=== PATIENT | male | born 1950 | race African-American/Black ===

== ENCOUNTER 2020-11-29 01:30 | Inpatient (IN) | payer MEDICARE, MEDICAID ==
[~2020-11-29] VITALS: Ht 182.9 cm; Wt 104.0 kg
--- NOTE | ~2020-11-29 | EMS ---
[address] [address] EMS Patient Care Report Name: NICHOLAS PIERCE Room: [address] ADM IN M.R.#: [id number] Admission: 11/29/20 Attend Phys: Rome Siegel MD Discharge: Date of : 54 Report #: [id number] THIS REPORT FOR: //name// Report Transmitted: 12/01/2020 13:12 EMS Care Summary [facility] Incident [id number] @ 11/29/2020 00:33 Incident Location [address] [place], [place] [id number] Patient Nicholas Pierce Male, 70 Years 1950 Patient Address [address] [place], [place] [id number] Patient History Schizoaffective Disorder,Anemia, unspecified,Endocrine Condition - Other,Paraplegia,Urinary tract infection, site not specified,Chronic Obstructive Pulmonary Disease (COPD),Other chronic pain,Anxiety disorder, unspecified,Bronchitis, not specified as acute or chronic,Atrial Fibrillation,Edema, unspecified,Acute respiratory failure,Novel Coronavirus (COVID-19),Pneumonia, unspecified organism,Hyperlipidemia,Hypothyroidism, unspecified, Patient Allergies No known allergies, Chief Complaint Shortness of Breath Disposition Transported No Lights/[place] Dispatch Reason Breathing Problem Transported To [address] [address] EMS Patient Care Report Name: NICHOLAS PIERCE Room: [address] IN [facility]#: [id number] Admission: 11/29/20 Attend Phys: Rome Siegel MD Discharge: Date of : 54 Report #: [id number] [facility] 320 WAS DISPATCHED TO [facility] FOR A 70 YEAR OLD COVID-19 POSITIVE MALE WITH SHORTNESS OF AIR AND A DECREASED OXYGEN SATURATION. UPON ARRIVAL, PATIENT CONTACT WAS DELAYED WHILE WAITING FOR STAFF TO LET US INTO THE BUILDING. AFTER GAINING ACCESS INTO THE BUILDING, [facility] PERSONNEL WERE LED TO ROOM 67 TO FIND A MALE SITTING IN BED IN A SEMI-PORTER'S POSITION WITH RAPID BUT UNLABORED RESPIRATIONS AND OPENED HIS EYES TO VERBAL STIMULI. STAFF EXPLAINED THAT HE WAS DIAGNOSED WITH COVID-19 2 DAYS AGO AND HAS HAD A TEMPERATURE OF 100.7 SINCE LAST NIGHT (FRIDAY) AND HIS OXYGEN SATURATION DROPPED TO 78% WHILE RECEIVING 3 LPM OXYGEN. STAFF WAS ASKED BY [facility] PERSONNEL IF THEY THOUGHT TO INCREASE HIS OXYGEN TO RAISE HIS OXYGEN SATURATION TO WHICH THEY STATED "YES, THE OXYGEN WAS INCREASED TO 4 LPM BUT HIS OXYGEN SATURATION WON'T MOVE HIGHER THAN 86%." WHEN ASKED IF THEY CONSIDERED INCREASING HIS OXYGEN TO 5 OR 6 LPM, STAFF WAS UNABLE TO PROVIDE AN ANSWER. VITAL SIGNS WERE OBTAINED, LUNG SOUND WERE ASSESSED AND NICHOLAS WAS TRANSFERRED LATERALLY ONTO THE COT WHERE HE WAS SECURED VIA 5 SAFETY STRAPS AND OXYGEN WAS ADMINISTERED VIA NRB WHICH QUICKLY IMPROVED HIS OXYGEN SATURATION. PAPER WORK WAS OBTAINED AND NICHOLAS WAS SECURED INTO THE AMBULANCE WHERE TREATMENTS AND INTERVENTIONS CONTINUED. NICHOLAS WAS MONITORED DURING TRANSPORT TO [facility] ER WITH NO SIGNIFICANT CHANGES IN PATIENT CONDITION AND IMPROVED OXYGEN SATURATION SINCE ADMINISTERING 10 LPM VIA NRB. UPON ARRIVAL, THE PATIENT WAS REMOVED FROM THE UNIT AND TAKEN INSIDE TO ER 13 WHERE HE WAS TRANSFERRED LATERALLY ONTO THE ER BED VIA DRAW SHEET. REPORT WAS GIVEN TO THE RECEIVING RN AND CARE WAS TRANSFERRED. [facility] BACK IN SERVICE. Initial Vitals @00:45SpO2: 85, @00:57SpO2: 89, @01:11SpO2: 94, @01:12SpO2: 94, @01:16SpO2: 94, @01:21SpO2: 95, @00:58 @00:59 @00:56 @01:10Temp: [id number], @00:44P: 106,R: 28,BP: 168/84, @01:20P: 104,R: 24,BP: 160/78, @00:99WfHZ8: 29, @00:78JoYD4: 44, @01:91IkIO7: 38, @01:65DrJG0: 42, @01:20NcEH3: 36, @01:62GfLQ8: 34, @01:91YpIX1: 34, @01:95PyWA1: 34, @01:36GmGG0: 37, [place] [address] EMS Patient Care Report Name: NICHOLAS PIERCE Room: [address] IN M.R.#: [id number] Admission: 11/29/20 Attend Phys: Rome Siegel MD Discharge: Date of : 54 Report #: [id number] @00:44GCS: 11, @01:20GCS: 11, @01:02Glucose: 394, Assessments @00:44MENTAL:SKIN:HEENT:LUNG SOUNDS:ABDOMEN:PELVIS//GI:EXTREMITIES:PULSE:NEURO: Impression COVID-19 - Confirmed by testing Procedures @PTAOther - Medication - 4.000 Liters per Minute (l/min [fluid]) - Nasal Cannula@00:46Other - Medication - 10.000 Liters per Minute (l/min [fluid]) - Non-Rebreather MaskResponse: Improved@01:00 cc () Site: Antecubital-LeftResponse: UnchangedFailed@01:05 cc () Site: Other Peripheral (Not Listed)Response: UnchangedSucceeded@00:56Digital respired carbon dioxide monitoring (regime/therapy)Response: UnchangedSucceeded@00:57Digital respired carbon dioxide monitoring (regime/therapy)Response: UnchangedSucceeded@01:01Digital respired carbon dioxide monitoring (regime/therapy)Response: UnchangedSucceeded@01:02Digital respired carbon dioxide monitoring (regime/therapy)Response: UnchangedSucceeded@01:06Digital respired carbon dioxide monitoring (regime/therapy)Response: UnchangedSucceeded@01:11Digital respired carbon dioxide monitoring (regime/therapy)Response: UnchangedSucceeded@01:12Digital respired carbon dioxide monitoring (regime/therapy)Response: UnchangedSucceeded@01:16Digital respired carbon dioxide monitoring (regime/therapy)Response: UnchangedSucceeded@01:21Digital respired carbon dioxide monitoring (regime/therapy)Response: UnchangedSucceeded@00:5812-Lead ECGResponse: UnchangedSucceeded@00:5912-Lead ECGResponse: UnchangedSucceeded@00:563-Lead ECGResponse: UnchangedSucceeded@00:50STEMI Alert Timeline 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,Other - Medication - 4.000 Liters per Minute (l/min [fluid]) - Nasal Cannula, 00:32,Call Received 00:32,Dispatch Notified 00:32,Psap Call 00:33,Dispatched 00:35,En Route 00:37,On Scene 00:44,At Patient 00:44,BP: 168/84 M,PULSE: 106,RR: 28 R,SPO2: Ox,ETCO2: ,BG: ,PAIN: ,GCS: , 00:44,BP: / M,PULSE: ,RR: R,SPO2: Ox,ETCO2: ,BG: ,PAIN: ,GCS: 11, 00:45,BP: / M,PULSE: ,RR: R,SPO2: 85 Ox,ETCO2: ,BG: ,PAIN: ,GCS: , 00:46,Other - Medication - 10.000 Liters per Minute (l/min [fluid]) [place] [address] EMS Patient Care Report Name: NICHOLAS PIERCE Room: [address] IN [facility]#: [id number] Admission: 11/29/20 Attend Phys: Rome Siegel MD Discharge: Date of : 54 Report #: [id number] Non-Rebreather Mask,Response: Improved 00:50,STEMI Alert, 00:56,Digital respired carbon dioxide monitoring (regime/therapy),Response: UnchangedSucceeded, 00:56,3-Lead ECG,Response: UnchangedSucceeded, 00:56,BP: / M,PULSE: ,RR: R,SPO2: Ox,ETCO2: ,BG: ,PAIN: ,GCS: , 00:56,BP: / M,PULSE: ,RR: R,SPO2: Ox,ETCO2: 29 ,BG: ,PAIN: ,GCS: , 00:57,Digital respired carbon dioxide monitoring (regime/therapy),Response: UnchangedSucceeded, 00:57,BP: / M,PULSE: ,RR: R,SPO2: 89 Ox,ETCO2: ,BG: ,PAIN: ,GCS: , 00:57,BP: / M,PULSE: ,RR: R,SPO2: Ox,ETCO2: 44 ,BG: ,PAIN: ,GCS: , 00:58,12-Lead ECG,Response: UnchangedSucceeded, 00:58,BP: / M,PULSE: ,RR: R,SPO2: Ox,ETCO2: ,BG: ,PAIN: ,GCS: , 00:59,12-Lead ECG,Response: UnchangedSucceeded, 00:59,BP: / M,PULSE: ,RR: R,SPO2: Ox,ETCO2: ,BG: ,PAIN: ,GCS: , 01:00, cc Site: Antecubital-Left,Response: UnchangedFailed, 01:01,Digital respired carbon dioxide monitoring (regime/therapy),Response: UnchangedSucceeded, 01:01,BP: / M,PULSE: ,RR: R,SPO2: Ox,ETCO2: 38 ,BG: ,PAIN: ,GCS: , 01:02,Digital respired carbon dioxide monitoring (regime/therapy),Response: UnchangedSucceeded, 01:02,BP: / M,PULSE: ,RR: R,SPO2: Ox,ETCO2: 42 ,BG: ,PAIN: ,GCS: , 01:02,BP: / M,PULSE: ,RR: R,SPO2: Ox,ETCO2: ,B,PAIN: ,GCS: , 01:05,Depart Scene 01:05, cc Site: Other Peripheral (Not Listed),Response: UnchangedSucceeded, 01:06,Digital respired carbon dioxide monitoring (regime/therapy),Response: UnchangedSucceeded, 01:06,BP: / M,PULSE: ,RR: R,SPO2: Ox,ETCO2: 36 ,BG: ,PAIN: ,GCS: , 01:10,BP: / M,PULSE: ,RR: R,SPO2: Ox,ETCO2: ,BG: ,PAIN: ,GCS: , 01:11,Digital respired carbon dioxide monitoring (regime/therapy),Response: UnchangedSucceeded, 01:11,BP: / M,PULSE: ,RR: R,SPO2: 94 Ox,ETCO2: ,BG: ,PAIN: ,GCS: , 01:11,BP: / M,PULSE: ,RR: R,SPO2: Ox,ETCO2: 34 ,BG: ,PAIN: ,GCS: , 01:12,Digital respired carbon dioxide monitoring (regime/therapy),Response: UnchangedSucceeded, 01:12,BP: / M,PULSE: ,RR: R,SPO2: 94 Ox,ETCO2: ,BG: ,PAIN: ,GCS: , 01:12,BP: / M,PULSE: ,RR: R,SPO2: Ox,ETCO2: 34 ,BG: ,PAIN: ,GCS: , 01:16,Digital respired carbon dioxide monitoring (regime/therapy),Response: UnchangedSucceeded, 01:16,BP: / M,PULSE: ,RR: R,SPO2: 94 Ox,ETCO2: ,BG: ,PAIN: ,GCS: , 01:16,BP: / M,PULSE: ,RR: R,SPO2: Ox,ETCO2: 34 ,BG: ,PAIN: ,GCS: , 01:20,BP: 160/78 M,PULSE: 104,RR: 24 R,SPO2: Ox,ETCO2: ,BG: ,PAIN: ,GCS: , 01:20,BP: / M,PULSE: ,RR: R,SPO2: Ox,ETCO2: ,BG: ,PAIN: ,GCS: 11, 01:21,Digital respired carbon dioxide monitoring (regime/therapy),Response: UnchangedSucceeded, 01:21,BP: / M,PULSE: ,RR: R,SPO2: 95 Ox,ETCO2: ,BG: ,PAIN: ,GCS: , [address] [address] EMS Patient Care Report Name: NICHOLAS PIERCE Room: [address] ADM IN [facility]#: [id number] Admission: 11/29/20 Attend Phys: Rome Siegel MD Discharge: Date of : 54 Report #: [id number] 01:21,BP: / M,PULSE: ,RR: R,SPO2: Ox,ETCO2: 37 ,BG: ,PAIN: ,GCS: , 01:21,At Destination 01:22,Call Closed Disclaimer v1.1 Copyright 2020 [employer] This EMS Care Summary contains data elements from the applicable legal record (which may be displayed differently). It is designed to provide pertinent information for the following purposes: continuity of care, clinical quality, and state data reporting. The complete legal record is available to ED staff and administrators of the receiving hospital in [facility]'s Patient Tracker. All data is provided "as is."
--- NOTE | ~2020-11-29 | CON ---
[address] [address] CONSULTATION Name: NICHOLAS UREÑA Room: [address] IN M.R.#: [id number] Admission: 11/29/20 Attend Phys: Rome Siegel MD Discharge: Date of : 54 Report #: [id number] THIS REPORT FOR: cc: Dedrick Rosado MD, Srinath MD ~ Treva Salazar MD DATE OF SERVICE: 12/15/2020 REQUESTING PHYSICIAN: Rome Siegel MD REASON FOR CONSULTATION: Anemia. HISTORY OF PRESENT ILLNESS: The patient is a 70-year-old man with history of schizophrenia, COPD, paraplegia who is admitted to the hospital with COVID illness. He was admitted to the hospital on 11/29. He has been intubated for COVID pneumonia. He was treated with remdesivir, plasma, steroids. He has been having persistent anemia, has received 4 units of packed red blood cells. Hematology consult is requested. There are no signs of melena or hematochezia. No signs of epistaxis. PAST MEDICAL HISTORY: History obtained from the nurse and from the chart review. OBJECTIVE: VITAL SIGNS: Blood pressure 142/60, heart rate is 56, temperature 97.3. GENERAL: The patient is intubated and sedated. The patient is seen from the distance. According to nurse, there are no large bruises, only the swelling of lower extremities. LABORATORY DATA: White count 22.8, hemoglobin 8.1, platelets 61. Ferritin 1463. Creatinine 1.8. LDH 547. ASSESSMENT AND PLAN: Anemia, most likely multifactorial secondary to sepsis, COVID-19 illness. Renal insufficiency is playing a contributing factor. He has not required transfusion in the last 24 hours. His hemoglobin is stable. Continue to monitor hemoglobin. Continue the treatment of underlying disease. Recommend to transfuse as needed. We will follow the patient with you. Thank you very much for allowing us to participate in care of this patient. The patient was seen on 12/15 for consultation. By: [id number] Salazar MD /nt
[2020-11-29 01:31] VITALS: BP 164/81
[2020-11-29] MEDS ORDERED: IPRAT-ALBUT 0.5-3 ML INH (02:01)
[2020-11-29] MEDS ORDERED: OMEPRAZOLE40 MG PO (02:02)
[2020-11-29] MEDS ORDERED: ALBUTEROL SULFATE PO (02:03)
[2020-11-29] MEDS ORDERED: NORVASC 2.5 MG2.5 M1 PO (02:04)
[2020-11-29] MEDS ORDERED: ASA81BEC PO (02:05)
[2020-11-29] MEDS ORDERED: CARVEDILOL12.5 MG PO (02:05)
[2020-11-29] MEDS ORDERED: MELATONIN3 M1 PO (02:06)
[2020-11-29] MEDS ORDERED: MIRALAX119 GM PO (02:06)
[2020-11-29] MEDS ORDERED: MUCINEX600 MG PO (02:07)
[2020-11-29] MEDS ORDERED: SENNA PLUS TAB1 EACH PO (02:08)
[2020-11-29] MEDS ORDERED: POTASSIUM20 PO (02:09)
[2020-11-29] MEDS ORDERED: VITAMIN D3100 MCG PO (02:09)
[2020-11-29] MEDS ORDERED: ARICEPT10 M1 PO (02:10)
[2020-11-29] MEDS ORDERED: TORSEMIDE100 MG PO (02:10)
[2020-11-29] MEDS ORDERED: ABILIFY20 MG PO (02:11)
[2020-11-29] MEDS ORDERED: HALOPERIDOL 5 MG5 MG PO (02:11)
[2020-11-29] MEDS ORDERED: ZINC SULFATE220 MG PO (02:12)
[2020-11-29] MEDS ORDERED: DIVALPROEX SOD500 MG PO (02:12)
[2020-11-29] MEDS ORDERED: VITAMIN C500 M1 PO (02:12)
[2020-11-29] MEDS ORDERED: DECADRON6 MG PO (02:13)
[2020-11-29] MEDS ORDERED: LEVOFLOXACIN750 MG PO (02:13)
[2020-11-29] MEDS ORDERED: BISACODYL10 MG RECTAL (02:15)
[2020-11-29] MEDS ORDERED: NOVOLOG FL100 UNIT/M SUBQ (02:16)
[2020-11-29] MEDS ORDERED: NOVOLOG MI100 UNIT/M SUBQ (02:17)
[2020-11-29] MEDS ORDERED: LEVEMIR100 UNIT/1 SUBQ (02:18)
[2020-11-29] MEDS ORDERED: LOVENOX40 MG/0.4 SUBQ (02:18)
[2020-11-29] MEDS ORDERED: ATIVAN0.5 M1 PO (02:19)
[2020-11-29] MEDS ORDERED: ACETAMINOPHEN650 M2 PO (02:20)
[2020-11-29] MEDS ORDERED: ONDANSETRON ODT4 MG PO (02:20)
[2020-11-29 02:29] LABS: ABSOLUTE LYMPHOCYTES 1.2 thou/uL (0.8-5.3); ABSOLUTE MONOCYTES 0.7 thou/uL (0.0-1.2); ABSOLUTE NEUTROPHILS 6.6 thou/uL (1.6-8.1); BASOPHILS 0.4 %; HEMOGLOBIN 12.8 gm/dL (14.0-18.0); LYMPHOCYTES 13.9 %; MCHC 31.3 g/dL (28.0-37.0); MCV 70.3 fL (80.0-100.0); MONOCYTES 7.9 %; MPV 9.3 fl. (7.2-11.1); NUCLEATED RBCS 0 /100WBC; PLATELET COUNT* 180 thou/uL (150-400); POLYS 77.8 %; RBC 5.83 mil/uL (4.50-6.00); RDW-CV 17.7 % (10.5-14.5); WBC 8.5 thou/uL (4.0-11.0)
[2020-11-29 02:31] LABS: CALCIUM 9.2 mg/dL (8.5-10.1); POTASSIUM 4.3 mmol/L (3.5-5.1)
[2020-11-29 02:33] LABS: PROTIME 10.6 Seconds (9.20-11.50)
[2020-11-29 02:41] LABS: BE 6.1 mmol/L (-2 to +3); PCO2 44.9 mmHg (35.0-45.0); pH 7.455 (7.340-7.450)
[2020-11-29 02:44] LABS: ALBUMIN 3.2 g/dL (3.4-5.0); MAGNESIUM 2.7 mg/dL (1.8-2.4); TOTAL BILIRUBIN 0.2 mg/dL (<0.1-1.0); TOTAL PROTEIN 8.8 g/dL (6.4-8.2)
[2020-11-29 02:53] LABS: PO2 59.3 mmHg (75.0-100.0)
[2020-11-29 04:52] LABS: URINE BILIRUBIN NEGATIVE (Negative); URINE BLOOD NEGATIVE (Negative); URINE CLARITY CLEAR; URINE COLOR YELLOW; URINE GLUCOSE-RANDOM 2+ (Negative); URINE KETONES NEGATIVE (Negative); URINE LEUKOCYTES-REFLEX TRACE (Negative); URINE NITRITE-REFLEX NEGATIVE (Negative); URINE PROTEIN TRACE (Negative); URINE SPECIFIC GRAVITY 1.015 (1.005-1.030); URINE UROBILINOGEN 0.2 E.U./dl (0.2-1.0)
[2020-11-29 05:27] LABS: BACTERIA-REFLEX >30 Many /HPF (None Seen); CASTS None Seen /LPF (None Seen); CRYSTALS None Seen /LPF (None Seen); MUCUS 0-3 Light strn/LPF (None Seen); SQUAMOUS 0-3 Few /LPF (0-3); URINE RBC 0-2 Rare /HPF (0-2); URINE WBC-REFLEX 0-5 Rare /HPF (0-5)
[2020-11-29 06:03] LABS: BE 7.3 mmol/L (-2 to +3); pH 7.432 (7.340-7.450)
[2020-11-29 06:06] LABS: PCO2 50.4 mmHg (35.0-45.0); PO2 59.3 mmHg (75.0-100.0)
[2020-11-29 06:48] LABS: HYPOCHROMASIA 2+; MICROCYTES 1+; PLATELET ESTIMATE ADEQUATE
[2020-11-29 06:49] LABS: ANISOCYTOSIS 1+; POIKILOCYTOSIS 1+; TARGET CELLS Occasional
[2020-11-29 08:00] VITALS: BP 135/72; BP 137/74
--- NOTE | 2020-11-29 14:30 | EKG ---
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: MR : 1950 Requested By: Leandra Lemon Order Number: [id number] MD: Vamsi Welsh Measurements Intervals [place] Rate: 105 P: 46 AR: 179 QRS: -10 QRSD: 82 T: 44 QT: 315 QTc: 417 Interpretive Statements Sinus tachycardia Left atrial enlargement No previous ECG available for comparison Electronically Signed On 11-29-2020 14:29:53 CATHOLIC PRIEST by Vamsi Welsh [email or web address] <ELECTRONICALLY SIGNED> By: Vamsi Welsh MD, [facility] 11/29/20 1429 0144 0144 Vamsi Welsh MD, [facility] /EPI
[2020-11-29 17:53] VITALS: BP 142/86; BP 144/80
[2020-11-29 20:00] VITALS: BP 147/68
[2020-11-30] VITALS (7 sets, daily range): BP systolic 114–147; BP diastolic 55–72
[2020-11-30 14:08] LABS: ABSOLUTE BASOPHILS 0.1 thou/uL (0.0-0.2); ABSOLUTE LYMPHOCYTES 0.7 thou/uL (0.8-5.3); ABSOLUTE MONOCYTES 0.3 thou/uL (0.0-1.2); ABSOLUTE NEUTROPHILS 9.9 thou/uL (1.6-8.1); BASOPHILS 0.5 %; HEMATOCRIT 36.9 % (42.0-52.0); HEMOGLOBIN 11.3 gm/dL (14.0-18.0); LYMPHOCYTES 6.2 %; MCH 21.7 pg (26.0-34.0); MCHC 30.6 g/dL (28.0-37.0); MCV 70.9 fL (80.0-100.0); MONOCYTES 2.9 %; MPV 8.7 fl. (7.2-11.1); NUCLEATED RBCS 0 /100WBC; PLATELET COUNT* 171 thou/uL (150-400); POLYS 90.4 %; RDW-CV 17.7 % (10.5-14.5); WBC 10.9 thou/uL (4.0-11.0)
[2020-11-30 14:18] LABS: ALBUMIN 2.5 g/dL (3.4-5.0); CALCIUM 8.3 mg/dL (8.5-10.1); CREATININE 1.9 mg/dL (0.6-1.3); MAGNESIUM 2.5 mg/dL (1.8-2.4); TOTAL BILIRUBIN 0.2 mg/dL (<0.1-1.0); TOTAL PROTEIN 7.5 g/dL (6.4-8.2)
--- NOTE | 2020-11-30 16:51 | 2DMMODE ---
[place] [address] 2 D/M-MODE ECHOCARDIOGRAM Name: NICHOLAS UREÑA Room: [address] IN [facility]#: [id number] Admission: 11/29/20 Attend Phys: Rome Siegel, Discharge: Date of : 54 Date of Service: 11/30/20 1651 Report #: [id number] THIS REPORT FOR: cc: Dedrick Rosado MD, Srinath MD Holkins,Vamsi Ray MD [facility] ~ APPROVED REPORT Study performed: 11/30/2020 16:01:22 EXAM: Comprehensive 2D, Doppler, and color-flow Echocardiogram Patient Location: In-Patient Room #: 113 BSA: 2.23 HR: 74 bpm BP: 114/63 mmHg Rhythm: NSR Other Information Study Quality: Fair Technically limited study due to body habitus. Indications Atrial Fibrillation Dyspnea 2D Dimensions IVSd: 12.29 (7-11mm) LVOT Diam: 20.35 (18-24mm) LVDd: 35.50 mm PWd: 10.65 (7-11mm) LVDs: 24.11 (25-40mm) Aortic Root: 29.43 mm Aortic Valve AoV Peak Todd.: 1.49 m/s AO Peak Gr.: 8.89 mmHg LVOT Max P.45 mmHg AO Mean Gr.: 5.81 mmHg LVOT Mean P.65 mmHg LVOT Max V: 0.93 m/s AO V2 VTI: 24.99 cm LVOT Mean V: 0.59 m/s SHAYAN (VTI): 2.01 cm2 LVOT V1 VTI: 15.47 cm Mitral Valve E/A Ratio: 1.60 [place] [address] 2 D/M-MODE ECHOCARDIOGRAM Name: NIRANJANPAOLABROOKLYN Room: [address] IN M.R.#: [id number] Admission: 11/29/20 Attend Phys: Rome Siegel, Discharge: Date of : 54 Date of Service: 11/30/20 1651 Report #: [id number] MV Decel. Time: 420.60 ms MV E Max Todd.: 0.61 m/s MV PHT: 121.98 ms MVA (PHT): 1.80 cm2 Left Ventricle The left ventricle is normal size. There is normal LV segmental wall motion. There is normal left ventricular wall thickness. Left ventricular systolic function is normal. The left ventricular ejection fraction is within the normal range. LVEF is 60%. This study is not technically sufficient to allow evaluation of the LV diastolic function. Right Ventricle The right ventricle is normal size. The right ventricular systolic function is normal. Atria The left atrium size is normal. The right atrium size is normal. Aortic Valve Mild aortic valve sclerosis. No aortic regurgitation is present. There is no aortic valvular stenosis. Mitral Valve The mitral valve is normal in structure. There is no mitral valve regurgitation noted. No evidence of mitral valve stenosis. Tricuspid Valve The tricuspid valve is normal in structure. Trace tricuspid regurgitation. Unable to assess PA pressure. Pulmonic Valve The pulmonary valve is normal in structure. There is no pulmonic valvular regurgitation. Great Vessels The aortic root is normal in size. IVC is not well visualized. Pericardium There is no pericardial effusion. <Conclusion> The left ventricle [place] [address] 2 D/M-MODE ECHOCARDIOGRAM Name: NICHOLAS UREÑA Room: [address] IN .R.#: [id number] Admission: 11/29/20 Attend Phys: Rome Siegel, Discharge: Date of : 54 Date of Service: 11/30/20 1651 Report #: [id number] There is normal left ventricular wall thickness. Left ventricular systolic function is normal. The left ventricular ejection fraction is within the normal range. LVEF is 60%. The right ventricle is normal size. The left atrium size is normal. Mild aortic valve sclerosis. The mitral valve is normal in structure. The tricuspid valve is normal in structure. There is no pericardial effusion. There is normal LV segmental wall motion. <ELECTRONICALLY SIGNED> By: Vamsi Welsh MD, FACC 11/30/201650 50 50 Vamsi Welsh MD, FACC /INF
[2020-11-30 18:36] LABS: BE 5.1 mmol/L (-2 to +3); PCO2 40.8 mmHg (35.0-45.0); pH 7.472 (7.340-7.450)
[2020-11-30 18:40] LABS: PO2 56.4 mmHg (75.0-100.0)
[2020-12-01] VITALS: BP 132/57
[2020-12-01 04:00] VITALS: BP 147/70
[2020-12-01 08:47] VITALS: BP 131/66
[2020-12-01 09:38] LABS: CREATININE 1.8 mg/dL (0.6-1.3); POTASSIUM 4.1 mmol/L (3.5-5.1)
[2020-12-01 12:00] VITALS: BP 130/71
[2020-12-01 15:57] VITALS: BP 152/60
[2020-12-01 20:00] VITALS: BP 154/64
[2020-12-02 00:39] VITALS: BP 147/56
[2020-12-02 05:01] LABS: HEMATOCRIT 35.2 % (42.0-52.0); HEMOGLOBIN 10.7 gm/dL (14.0-18.0); MCH 21.5 pg (26.0-34.0); MCHC 30.4 g/dL (28.0-37.0); MCV 70.7 fL (80.0-100.0); MPV 8.7 fl. (7.2-11.1); NUCLEATED RBCS 0 /100WBC; PLATELET COUNT* 219 thou/uL (150-400); RBC 4.98 mil/uL (4.50-6.00); RDW-CV 17.2 % (10.5-14.5); WBC 10.5 thou/uL (4.0-11.0)
[2020-12-02 05:16] VITALS: BP 118/59
[2020-12-02 05:21] LABS: CALCIUM 8.5 mg/dL (8.5-10.1); CREATININE 1.6 mg/dL (0.6-1.3); MAGNESIUM 2.6 mg/dL (1.8-2.4); PHOSPHORUS* 3.6 mg/dL (2.5-4.9); POTASSIUM 3.8 mmol/L (3.5-5.1)
[2020-12-02 06:13] LABS: ABSOLUTE LYMPHOCYTES 1.1 thou/uL (0.8-5.3); ABSOLUTE MONOCYTES 0.2 thou/uL (0.0-1.2); ABSOLUTE NEUTROPHILS 9.2 thou/uL (1.6-8.1); ANISOCYTOSIS 1+; HYPOCHROMASIA 1+; PLATELET ESTIMATE ADEQUATE
[2020-12-02 08:45] VITALS: BP 123/63
[2020-12-02 14:01] VITALS: BP 126/70
[2020-12-02 19:46] VITALS: BP 128/60
[2020-12-02 20:00] VITALS: BP 130/61
[2020-12-03] VITALS: BP 138/71
[2020-12-03 04:00] VITALS: BP 127/60
[2020-12-03 05:54] LABS: ABSOLUTE MONOCYTES 0.6 thou/uL (0.0-1.2); ABSOLUTE NEUTROPHILS 10.2 thou/uL (1.6-8.1); BASOPHILS 0.1 %; HEMATOCRIT 34.7 % (42.0-52.0); HEMOGLOBIN 10.8 gm/dL (14.0-18.0); LYMPHOCYTES 8.8 %; MCH 21.7 pg (26.0-34.0); MCHC 31.1 g/dL (28.0-37.0); MCV 69.7 fL (80.0-100.0); MONOCYTES 5.3 %; MPV 8.6 fl. (7.2-11.1); NUCLEATED RBCS 0 /100WBC; PLATELET COUNT* 234 thou/uL (150-400); POLYS 85.8 %; RBC 4.98 mil/uL (4.50-6.00); RDW-CV 17.2 % (10.5-14.5); WBC 11.9 thou/uL (4.0-11.0)
[2020-12-03 06:07] LABS: ALBUMIN 2.4 g/dL (3.4-5.0); CALCIUM 8.5 mg/dL (8.5-10.1); CREATININE 1.3 mg/dL (0.6-1.3); MAGNESIUM 2.6 mg/dL (1.8-2.4); POTASSIUM 3.5 mmol/L (3.5-5.1); TOTAL BILIRUBIN 0.3 mg/dL (<0.1-1.0); TOTAL PROTEIN 6.8 g/dL (6.4-8.2)
[2020-12-03 07:12] LABS: BE 2.7 mmol/L (-2 to +3); PCO2 49.2 mmHg (35.0-45.0); PO2 62.3 mmHg (75.0-100.0); pH 7.381 (7.340-7.450)
[2020-12-03 08:00] VITALS: BP 112/72; BP 145/71
[2020-12-03 14:56] VITALS: BP 145/75
[2020-12-03 16:29] VITALS: BP 155/81
[2020-12-03 20:45] VITALS: BP 137/59
[2020-12-04] VITALS (37 sets, daily range): BP systolic 80–157; BP diastolic 47–77
[2020-12-04 09:09] LABS: HEMATOCRIT 34.6 % (42.0-52.0); HEMOGLOBIN 10.8 gm/dL (14.0-18.0); MCH 21.6 pg (26.0-34.0); MCHC 31.2 g/dL (28.0-37.0); MCV 69.3 fL (80.0-100.0); MPV 8.9 fl. (7.2-11.1); NUCLEATED RBCS 0 /100WBC; PLATELET COUNT* 268 thou/uL (150-400); RBC 4.99 mil/uL (4.50-6.00); RDW-CV 17.5 % (10.5-14.5); WBC 14.2 thou/uL (4.0-11.0)
[2020-12-04 09:22] LABS: ALBUMIN 2.2 g/dL (3.4-5.0); CALCIUM 8.4 mg/dL (8.5-10.1); CREATININE 1.1 mg/dL (0.6-1.3); POTASSIUM 3.5 mmol/L (3.5-5.1); TOTAL BILIRUBIN 0.3 mg/dL (<0.1-1.0); TOTAL PROTEIN 6.5 g/dL (6.4-8.2)
[2020-12-04 09:51] LABS: ABSOLUTE MONOCYTES 0.9 thou/uL (0.0-1.2); ABSOLUTE NEUTROPHILS 11.4 thou/uL (1.6-8.1); ANISOCYTOSIS 2+; HYPOCHROMASIA 2+; MICROCYTES 2+; MYELOCYTES 2 %; PLATELET ESTIMATE ADEQUATE
[2020-12-04 09:52] LABS: POIKILOCYTOSIS 1+
[2020-12-04 16:08] LABS: BE 2.8 mmol/L (-2 to +3); PCO2 41.5 mmHg (35.0-45.0); pH 7.436 (7.340-7.450)
[2020-12-04 16:11] LABS: PO2 36.8 mmHg (75.0-100.0)
[2020-12-04 16:36] LABS: CALCIUM 8.6 mg/dL (8.5-10.1); CREATININE 1.2 mg/dL (0.6-1.3); MAGNESIUM 2.4 mg/dL (1.8-2.4); POTASSIUM 4.2 mmol/L (3.5-5.1)
[2020-12-04 18:24] LABS: BE 1.5 mmol/L (-2 to +3); PCO2 47.7 mmHg (35.0-45.0); PO2 94.5 mmHg (75.0-100.0); pH 7.376 (7.340-7.450)
[2020-12-05] VITALS (125 sets, daily range): BP systolic 83–164; BP diastolic 43–78
[2020-12-05 03:40] LABS: ABSOLUTE MONOCYTES 0.6 thou/uL (0.0-1.2); ABSOLUTE NEUTROPHILS 12.8 thou/uL (1.6-8.1); BASOPHILS 0.3 %; HEMATOCRIT 37.4 % (42.0-52.0); HEMOGLOBIN 11.4 gm/dL (14.0-18.0); LYMPHOCYTES 7.1 %; MCH 21.6 pg (26.0-34.0); MCHC 30.6 g/dL (28.0-37.0); MCV 70.6 fL (80.0-100.0); MONOCYTES 4.3 %; MPV 8.7 fl. (7.2-11.1); NUCLEATED RBCS 0 /100WBC; PLATELET COUNT* 259 thou/uL (150-400); POLYS 88.3 %; RDW-CV 17.4 % (10.5-14.5); WBC 14.5 thou/uL (4.0-11.0)
[2020-12-05 03:48] LABS: ALBUMIN 2.1 g/dL (3.4-5.0); APTT 28.8 Seconds (25.0-31.3); CALCIUM 8.1 mg/dL (8.5-10.1); CREATININE 1.3 mg/dL (0.6-1.3); INR 1.1; MAGNESIUM 2.6 mg/dL (1.8-2.4); POTASSIUM 4.5 mmol/L (3.5-5.1); PROTIME 11.4 Seconds (9.20-11.50); TOTAL BILIRUBIN 0.3 mg/dL (<0.1-1.0); TOTAL PROTEIN 6.7 g/dL (6.4-8.2)
[2020-12-05 03:59] LABS: PHOSPHORUS* 4.4 mg/dL (2.5-4.9)
[2020-12-05 08:20] LABS: BE 1.5 mmol/L (-2 to +3); PO2 80.1 mmHg (75.0-100.0)
[2020-12-05 08:23] LABS: PCO2 55.1 mmHg (35.0-45.0)
[2020-12-05 17:14] LABS: BE 1.8 mmol/L (-2 to +3); PCO2 39.8 mmHg (35.0-45.0); pH 7.434 (7.340-7.450)
[2020-12-05 17:16] LABS: PO2 42.6 mmHg (75.0-100.0)
[2020-12-05 17:54] LABS: BE 3.7 mmol/L (-2 to +3); PCO2 47.9 mmHg (35.0-45.0); pH 7.403 (7.340-7.450)
[2020-12-05 17:55] LABS: PO2 49.2 mmHg (75.0-100.0)
[2020-12-06] VITALS (71 sets, daily range): BP systolic 76–214; BP diastolic 32–78
[2020-12-06 05:39] LABS: ABSOLUTE LYMPHOCYTES 1.7 thou/uL (0.8-5.3); ABSOLUTE MONOCYTES 0.8 thou/uL (0.0-1.2); ABSOLUTE NEUTROPHILS 12.6 thou/uL (1.6-8.1); BASOPHILS 0.2 %; EOSINOPHILS 0.2 %; HEMATOCRIT 33.5 % (42.0-52.0); HEMOGLOBIN 10.5 gm/dL (14.0-18.0); LYMPHOCYTES 11.2 %; MCH 21.8 pg (26.0-34.0); MCHC 31.2 g/dL (28.0-37.0); MCV 69.8 fL (80.0-100.0); MONOCYTES 5.2 %; MPV 8.9 fl. (7.2-11.1); NUCLEATED RBCS 0 /100WBC; PLATELET COUNT* 253 thou/uL (150-400); POLYS 83.2 %; RDW-CV 17.1 % (10.5-14.5); WBC 15.1 thou/uL (4.0-11.0)
[2020-12-06 05:57] LABS: PREALBUMIN 15.8 mg/dL (18.0-35.7)
[2020-12-06 05:58] LABS: ALBUMIN 1.9 g/dL (3.4-5.0); CALCIUM 8.4 mg/dL (8.5-10.1); CREATININE 1.3 mg/dL (0.6-1.3); POTASSIUM 3.4 mmol/L (3.5-5.1); TOTAL BILIRUBIN 0.3 mg/dL (<0.1-1.0)
--- NOTE | 2020-12-06 10:05 | EKG ---
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 : 1950 Requested By: Lakhwinder Cam Order Number: [id number] Reading MD: Narciso Hendricks Measurements Intervals [place] Rate: 51 P: 57 AR: 234 QRS: 28 QRSD: 91 T: 49 QT: 483 QTc: 445 Interpretive Statements Sinus bradycardia Prolonged AR interval Borderline low voltage, extremity leads Nonspecific T abnormalities, lateral leads Baseline wander in lead(s) I,II,aVR,aVL,V1 Compared to ECG 11/29/2020 01:44:49 First degree AV block now present T-wave abnormality now present Sinus tachycardia no longer present Electronically Signed On 12-06-2020 10:05:35 SAFETY AIDE by Narciso Hendricks [email or web address] <ELECTRONICALLY SIGNED> By: Narciso Hendricks MD, [facility] 12/06/20 1005 7 7 Narciso Hendricks MD, [facility] /EPI
[2020-12-06 10:30] LABS: BE 2.2 mmol/L (-2 to +3); PCO2 48.9 mmHg (35.0-45.0); pH 7.376 (7.340-7.450)
[2020-12-06 10:31] LABS: PO2 57.8 mmHg (75.0-100.0)
[2020-12-06 17:15] LABS: CREATININE 1.2 mg/dL (0.6-1.3); MAGNESIUM 2.7 mg/dL (1.8-2.4)
[2020-12-06 21:45] LABS: PO2 79.1 mmHg (75.0-100.0)
[2020-12-06 21:53] LABS: PCO2 59.8 mmHg (35.0-45.0); pH 7.271 (7.340-7.450)
--- NOTE | 2020-12-06 22:14 | CON ---
[address] [address] CONSULTATION Name: NICHOLAS UREÑA Room: [address] IN M.R.#: [id number] Admission: 11/29/20 Attend Phys: Rome Siegel MD Discharge: Date of : 54 Report #: [id number] THIS REPORT FOR: cc: Dedrick Rosado MD, Srinath MD ~ Lakhwinder Cam MD DATE OF SERVICE: 11/29/2020 Consult has been requested by Dr. Olivares. INDICATION FOR CONSULTATION: Acute hypoxemic/hypercarbic respiratory failure. HISTORY OF PRESENT ILLNESS: This is a 70 years old gentleman. There is only limited information available regarding his past medical history. He does live at an assisted living facility and he is reported to be on 3 liters oxygen at the facility. It appears likely that he is on oxygen longterm. His arterial blood gases are consistent with acute as well as chronic respiratory failure. The patient is reported to be saturating only 78% on 3 liters nasal cannula and therefore, the assisted living facility had called the EMS, who had placed him on BiPAP and transferred him to our facility. The patient has a history of schizophrenia and is not able to provide a detailed history. He had ripped his BiPAP off and again became hypoxemic in the Emergency Room and subsequently was placed on high flow nasal cannula, maintaining O2 saturation with [address] He is also in renal failure. His creatinine is 2.0. I do not have a previous creatinine available for comparison. The patient is reported to have tested positive to COVID-19 2 to 3 days ago. He is reported to have had an increase in cough as well as increase in shortness of breath. The patient was actively bronchospastic at the time of my evaluation. He also had a fever of 38.1 degrees Celsius. He was hemodynamically stable. The patient did not provide any additional history or review of systems. He is reported to have been lethargic at the time of transfer. PAST MEDICAL HISTORY: Based on his arterial blood gases as well as home medication list, it appears likely to me that he has chronic hypoxemic as well as hypercarbic respiratory failure and it also appears likely that he has COPD, neither of this is documented on the records, unknown if he has chronic renal failure, he does take diuretics long-term, schizophrenia, insomnia, cellulitis, urinary tract infection, hypothyroidism, diabetes, atrial fibrillation, dysphagia, paraplegia, chronic pain, hypertension. I do not have a measure of his left ventricular ejection fraction available. SOCIAL HISTORY: He lives at an assisted living facility. I do not have information available regarding his previous history of smoking, [place] [address] CONSULTATION Name: NICHOLAS UREÑA Room: [address] IN ..#: [id number] Admission: 11/29/20 Attend Phys: Rome Siegel MD Discharge: Date of : 54 Report #: [id number] CURRENT MEDICATIONS: List in Liquid5 reviewed. HOME MEDICATIONS: List also in Liquid5 reviewed. ALLERGIES: No known drug allergies. FAMILY HISTORY: No pertinent family history is known at this time. PHYSICAL EXAMINATION: GENERAL: The patient was fully awake; however, provided only a limited history. VITAL SIGNS: He had a pulse of 81 and a blood pressure of 137/74. He was on 15 liters nasal cannula, but he also was saturating 96-97%. He had a fever of 38.1. HEENT: Head is normocephalic and atraumatic. NECK: Does not show raised JVP, asymmetry, mass or lymph nodes. CHEST: Symmetrical expansion on inspection and palpation. On auscultation, breath sounds are bilaterally equal, but decreased. On auscultation, there are bilateral expiratory wheezes heard. HEART: Regular. There is no murmur. ABDOMEN: Soft and nontender. EXTREMITIES: Lower extremities show minimal edema only. No calf tenderness. SKIN: Dry and intact. NEUROLOGICAL: Moves all extremities bilaterally equally and spontaneously with no focal deficit identified. LABORATORY DATA: The patient's chest x-ray was performed this morning, I reviewed. There are extensive infiltrates bilaterally consistent with COVID-19. The patient's lab work is in Liquid5. This is reviewed and is positive for COVID-19. He is in renal failure with a creatinine of 2.0. He has had marked elevation in blood glucoses. His arterial blood gases are consistent with acute as well as chronic components to respiratory failure. ASSESSMENT AND PLAN: 1. Acute on chronic hypoxemic and hypercarbic respiratory failure. The patient's arterial blood gases are consistent with a chronic component to respiratory failure in addition to acute. It appears likely that the patient has some hypercarbia and hypoxemia at his baseline as well. At this time, I would recommend continuing to titrate oxygen and we will recommend continuing to use BiPAP while asleep and p.r.n., provided he is able to tolerate BiPAP. I switched over his BiPAP to AVAPS mode. 2. COVID-19. See discussion regarding steroid as below. I will also start him on remdesivir. I ordered one unit of convalescent plasma. I will consider giving him one more unit tomorrow. [place] [address] CONSULTATION Name: NICHOLAS UREÑA Room: [address] IN M.R.#: [id number] Admission: 11/29/20 Attend Phys: Rome Siegel MD Discharge: Date of : 54 Report #: [id number] 3. Bronchospasm/suspected acute exacerbation of chronic obstructive pulmonary disease. The patient was actively bronchospastic at the time of my evaluation. It appears likely to me that the patient has underlying chronic obstructive pulmonary disease, possibly long-term oxygen-dependent COPD, although I do not have records available in this regard. I would therefore significantly increase his dexamethasone dose to 8 mg q.8 hours. We will also increase his nebulized bronchodilators. We will watch his mental status closely while he is on a significant dose of steroid. If his bronchospasm is better, then I will cut back on the dexamethasone dose tomorrow. 4. Pulmonary infiltrates, primarily secondary to COVID-19. I agree with covering him with broad-spectrum antibiotics. Also, he is currently on Zosyn. I do not have a strong reason to change antibiotic, therefore continued the same. We will do a sputum culture as well as nasal swab for methicillin-resistant Staphylococcus aureus if possible. 5. Renal failure/evaluation of cardiac function. His creatinine is 2.0. I do not have a previous available creatinine for comparison. I would do a renal ultrasound. I recommend following his creatinine. I did not change his diuretic dose. If his creatinine remains stable, then I will consider diuresing him further. We will also do an echo and obtain the right heart pressures and left ventricular ejection fraction as well. 6. Elevated dimer/deep venous thrombosis prophylaxis. We will do venous Dopplers. We will also order Lovenox in the prophylactic dose. 7. Past medical history of atrial fibrillation. 8. Past medical history of schizophrenia. The patient is on significant amounts of psych medications. This is noted. 9. History of diabetes, significant hyperglycemia noted. Management deferred to the primary service. The patient is critically ill at this time with acute on chronic hypoxemic and hypercarbic respiratory failure secondary to COVID-19. Total time spent providing critical care to this patient today is about 45 minutes. <ELECTRONICALLY SIGNED> By: Lakhwinder Cam MD 12/06/20 2214 15 [id number] Cam MD /nt
[2020-12-07] VITALS (53 sets, daily range): BP systolic 47–205; BP diastolic 27–78
[2020-12-07 04:07] LABS: ABSOLUTE LYMPHOCYTES 0.8 thou/uL (0.8-5.3); ABSOLUTE MONOCYTES 0.3 thou/uL (0.0-1.2); ABSOLUTE NEUTROPHILS 13.4 thou/uL (1.6-8.1); BASOPHILS 0.3 %; EOSINOPHILS 0.1 %; LYMPHOCYTES 5.5 %; MCH 21.4 pg (26.0-34.0); MCHC 30.6 g/dL (28.0-37.0); MCV 70.1 fL (80.0-100.0); MONOCYTES 2.1 %; MPV 8.7 fl. (7.2-11.1); NUCLEATED RBCS 0 /100WBC; PLATELET COUNT* 281 thou/uL (150-400); RBC 5.14 mil/uL (4.50-6.00); RDW-CV 17.3 % (10.5-14.5); WBC 14.5 thou/uL (4.0-11.0)
[2020-12-07 04:30] LABS: PREALBUMIN 16.4 mg/dL (18.0-35.7)
[2020-12-07 04:37] LABS: ALBUMIN 2.3 g/dL (3.4-5.0); CALCIUM 8.8 mg/dL (8.5-10.1); CREATININE 1.1 mg/dL (0.6-1.3); MAGNESIUM 2.5 mg/dL (1.8-2.4); POTASSIUM 4.4 mmol/L (3.5-5.1); TOTAL BILIRUBIN 0.3 mg/dL (<0.1-1.0); TOTAL PROTEIN 6.4 g/dL (6.4-8.2)
[2020-12-07 09:19] LABS: BE 2.2 mmol/L (-2 to +3); pH 7.358 (7.340-7.450)
[2020-12-07 09:20] LABS: PCO2 51.8 mmHg (35.0-45.0)
[2020-12-07 09:21] LABS: PO2 51.1 mmHg (75.0-100.0)
[2020-12-07 13:29] LABS: CALCIUM 8.6 mg/dL (8.5-10.1); CREATININE 1.1 mg/dL (0.6-1.3); MAGNESIUM 2.4 mg/dL (1.8-2.4); POTASSIUM 3.9 mmol/L (3.5-5.1)
[2020-12-07 17:13] LABS: BE -1.1 mmol/L (-2 to +3); PCO2 45.9 mmHg (35.0-45.0); PO2 69.5 mmHg (75.0-100.0); pH 7.349 (7.340-7.450)
[2020-12-08] VITALS (49 sets, daily range): BP systolic 85–171; BP diastolic 43–65
[2020-12-08 06:42] LABS: HEMATOCRIT 33.7 % (42.0-52.0); HEMOGLOBIN 10.6 gm/dL (14.0-18.0); MCH 21.7 pg (26.0-34.0); MCHC 31.4 g/dL (28.0-37.0); MCV 69.3 fL (80.0-100.0); MPV 8.8 fl. (7.2-11.1); NUCLEATED RBCS 0 /100WBC; PLATELET COUNT* 303 thou/uL (150-400); RBC 4.87 mil/uL (4.50-6.00); RDW-CV 17.4 % (10.5-14.5); WBC 11.7 thou/uL (4.0-11.0)
[2020-12-08 07:00] LABS: ALBUMIN 2.6 g/dL (3.4-5.0); CALCIUM 9.4 mg/dL (8.5-10.1); CREATININE 1.1 mg/dL (0.6-1.3); MAGNESIUM 2.7 mg/dL (1.8-2.4); PHOSPHORUS* 2.8 mg/dL (2.5-4.9); POTASSIUM 4.1 mmol/L (3.5-5.1); TOTAL BILIRUBIN 0.3 mg/dL (<0.1-1.0); TOTAL PROTEIN 6.4 g/dL (6.4-8.2)
[2020-12-08 08:25] LABS: BE 4.7 mmol/L (-2 to +3); PCO2 45.4 mmHg (35.0-45.0); PO2 62.1 mmHg (75.0-100.0); pH 7.432 (7.340-7.450)
[2020-12-08 09:41] LABS: ABSOLUTE LYMPHOCYTES 0.8 thou/uL (0.8-5.3); ABSOLUTE MONOCYTES 0.4 thou/uL (0.0-1.2); ABSOLUTE NEUTROPHILS 10.5 thou/uL (1.6-8.1); METAMYELOCYTES 2 %; MICROCYTES 2+; PLATELET ESTIMATE ADEQUATE
[2020-12-08 14:04] LABS: CALCIUM 8.9 mg/dL (8.5-10.1); POTASSIUM 3.9 mmol/L (3.5-5.1)
[2020-12-08 15:31] LABS: BE 2.9 mmol/L (-2 to +3); PCO2 45.2 mmHg (35.0-45.0); PO2 66.1 mmHg (75.0-100.0); pH 7.409 (7.340-7.450)
[2020-12-09] VITALS (32 sets, daily range): BP systolic 95–146; BP diastolic 49–62
[2020-12-09 03:32] LABS: ABSOLUTE BASOPHILS 0.1 thou/uL (0.0-0.2); ABSOLUTE LYMPHOCYTES 0.6 thou/uL (0.8-5.3); ABSOLUTE MONOCYTES 0.5 thou/uL (0.0-1.2); ABSOLUTE NEUTROPHILS 13.1 thou/uL (1.6-8.1); BASOPHILS 0.6 %; EOSINOPHILS 0.1 %; HEMATOCRIT 29.1 % (42.0-52.0); LYMPHOCYTES 4.4 %; MCH 21.6 pg (26.0-34.0); MCHC 31.1 g/dL (28.0-37.0); MCV 69.5 fL (80.0-100.0); MONOCYTES 3.4 %; MPV 8.8 fl. (7.2-11.1); NUCLEATED RBCS 0 /100WBC; PLATELET COUNT* 247 thou/uL (150-400); POLYS 91.5 %; RBC 4.19 mil/uL (4.50-6.00); RDW-CV 17.4 % (10.5-14.5); WBC 14.3 thou/uL (4.0-11.0)
[2020-12-09 03:46] LABS: ALBUMIN 2.2 g/dL (3.4-5.0); CALCIUM 8.5 mg/dL (8.5-10.1); MAGNESIUM 2.7 mg/dL (1.8-2.4); POTASSIUM 3.9 mmol/L (3.5-5.1); TOTAL BILIRUBIN 0.2 mg/dL (<0.1-1.0); TOTAL PROTEIN 5.5 g/dL (6.4-8.2)
[2020-12-09 08:41] LABS: BE 2.1 mmol/L (-2 to +3); PCO2 49.8 mmHg (35.0-45.0); pH 7.368 (7.340-7.450)
[2020-12-09 08:43] LABS: PO2 56.1 mmHg (75.0-100.0)
[2020-12-09 14:08] LABS: URINE BILIRUBIN NEGATIVE (Negative); URINE BLOOD 3+ (Negative); URINE CLARITY CLOUDY; URINE COLOR YELLOW; URINE GLUCOSE-RANDOM NEGATIVE (Negative); URINE KETONES NEGATIVE (Negative); URINE LEUKOCYTES-REFLEX TRACE (Negative); URINE NITRITE-REFLEX NEGATIVE (Negative); URINE PROTEIN 1+ (Negative); URINE SPECIFIC GRAVITY 1.025 (1.005-1.030); URINE UROBILINOGEN 0.2 E.U./dl (0.2-1.0)
[2020-12-09 14:16] LABS: CRYSTALS None Seen /LPF (None Seen); URINE RBC >20 Many /HPF (0-2)
[2020-12-09 14:17] LABS: SQUAMOUS 0-3 Few /LPF (0-3)
[2020-12-09 14:18] LABS: HYALINE CASTS 4-10 Moderate /LPF (None Seen); MUCUS 0-3 Light strn/LPF (None Seen)
[2020-12-09 14:22] LABS: BACTERIA-REFLEX None Seen /HPF (None Seen); YEAST-REFLEX Present (None Seen)
[2020-12-10] VITALS (114 sets, daily range): BP systolic 48–221; BP diastolic 31–96
[2020-12-10 02:30] LABS: ABSOLUTE LYMPHOCYTES 1.2 thou/uL (0.8-5.3); ABSOLUTE MONOCYTES 1.3 thou/uL (0.0-1.2); BASOPHILS 0.2 %; HEMATOCRIT 28.8 % (42.0-52.0); HEMOGLOBIN 8.9 gm/dL (14.0-18.0); LYMPHOCYTES 7.2 %; MCH 21.6 pg (26.0-34.0); MCHC 30.9 g/dL (28.0-37.0); MONOCYTES 8.1 %; MPV 8.9 fl. (7.2-11.1); NUCLEATED RBCS 0 /100WBC; PLATELET COUNT* 247 thou/uL (150-400); POLYS 84.5 %; RBC 4.12 mil/uL (4.50-6.00); RDW-CV 17.5 % (10.5-14.5); WBC 16.6 thou/uL (4.0-11.0)
[2020-12-10 02:39] LABS: ALBUMIN 2.2 g/dL (3.4-5.0); CALCIUM 8.4 mg/dL (8.5-10.1); CREATININE 1.7 mg/dL (0.6-1.3); MAGNESIUM 2.6 mg/dL (1.8-2.4); PHOSPHORUS* 4.1 mg/dL (2.5-4.9); POTASSIUM 4.3 mmol/L (3.5-5.1); TOTAL BILIRUBIN 0.3 mg/dL (<0.1-1.0); TOTAL PROTEIN 5.4 g/dL (6.4-8.2)
[2020-12-10 05:07] LABS: BE -0.5 mmol/L (-2 to +3); PCO2 48.7 mmHg (35.0-45.0); pH 7.339 (7.340-7.450)
[2020-12-10 05:09] LABS: PO2 58.1 mmHg (75.0-100.0)
[2020-12-10 14:06] LABS: INR 1.1; PROTIME 11.8 Seconds (9.20-11.50)
[2020-12-10 17:14] LABS: BE 1.6 mmol/L (-2 to +3); PCO2 33.7 mmHg (35.0-45.0); PO2 65.5 mmHg (75.0-100.0); pH 7.485 (7.340-7.450)
[2020-12-10 17:15] LABS: HEMATOCRIT 29.2 % (42.0-52.0); MCH 21.8 pg (26.0-34.0); MCHC 30.8 g/dL (28.0-37.0); MCV 70.8 fL (80.0-100.0); MPV 8.9 fl. (7.2-11.1); NUCLEATED RBCS 2 /100WBC; PLATELET COUNT* 288 thou/uL (150-400); RBC 4.12 mil/uL (4.50-6.00); RDW-CV 17.1 % (10.5-14.5); WBC 22.8 thou/uL (4.0-11.0)
[2020-12-10 17:22] LABS: CALCIUM 8.3 mg/dL (8.5-10.1); MAGNESIUM 2.7 mg/dL (1.8-2.4); POTASSIUM 4.5 mmol/L (3.5-5.1)
[2020-12-10 18:50] LABS: ABSOLUTE LYMPHOCYTES 1.6 thou/uL (0.8-5.3); ABSOLUTE MONOCYTES 1.8 thou/uL (0.0-1.2); ABSOLUTE NEUTROPHILS 19.4 thou/uL (1.6-8.1); METAMYELOCYTES 2 %; MYELOCYTES 1 %
[2020-12-10 18:51] LABS: PLATELET ESTIMATE ADEQUATE
[2020-12-10 18:52] LABS: ANISOCYTOSIS 1+; HYPOCHROMASIA 2+; MICROCYTES 2+; OVALOCYTES Occasional; TARGET CELLS Occasional
[2020-12-11] VITALS (123 sets, daily range): BP systolic 66–172; BP diastolic 39–76
[2020-12-11 00:56] LABS: HEMATOCRIT 25.2 % (42.0-52.0); HEMOGLOBIN 7.7 gm/dL (14.0-18.0); MCH 22.1 pg (26.0-34.0); MCHC 30.7 g/dL (28.0-37.0); MCV 72.1 fL (80.0-100.0); MPV 8.7 fl. (7.2-11.1); RBC 3.5 mil/uL (4.50-6.00); WBC 30.6 thou/uL (4.0-11.0)
[2020-12-11 06:11] LABS: HEMATOCRIT 24.6 % (42.0-52.0); HEMOGLOBIN 7.6 gm/dL (14.0-18.0); MCH 23.3 pg (26.0-34.0); MCHC 31.1 g/dL (28.0-37.0); MCV 74.9 fL (80.0-100.0); MPV 8.7 fl. (7.2-11.1); RBC 3.28 mil/uL (4.50-6.00); RDW-CV 19.8 % (10.5-14.5); WBC 32.6 thou/uL (4.0-11.0)
[2020-12-11 06:26] LABS: ALBUMIN 1.8 g/dL (3.4-5.0); CALCIUM 7.3 mg/dL (8.5-10.1); CREATININE 2.8 mg/dL (0.6-1.3); MAGNESIUM 2.7 mg/dL (1.8-2.4); TOTAL BILIRUBIN 0.9 mg/dL (<0.1-1.0); TOTAL PROTEIN 4.7 g/dL (6.4-8.2)
[2020-12-11 06:40] LABS: POTASSIUM 5.6 mmol/L (3.5-5.1)
[2020-12-11 11:08] LABS: BE -6.9 mmol/L (-2 to +3); PCO2 40.4 mmHg (35.0-45.0); PO2 69.6 mmHg (75.0-100.0)
[2020-12-11 11:11] LABS: pH 7.293 (7.340-7.450)
[2020-12-11 12:07] LABS: HEMATOCRIT 22.1 % (42.0-52.0)
[2020-12-11 12:09] LABS: HEMOGLOBIN 6.7 gm/dL (14.0-18.0)
[2020-12-11 17:00] LABS: CALCIUM 7.3 mg/dL (8.5-10.1); MAGNESIUM 2.8 mg/dL (1.8-2.4); PHOSPHORUS* 7.6 mg/dL (2.5-4.9); POTASSIUM 5.6 mmol/L (3.5-5.1)
[2020-12-11 18:20] LABS: HEMATOCRIT 24.3 % (42.0-52.0); HEMOGLOBIN 7.6 gm/dL (14.0-18.0); MCH 24.1 pg (26.0-34.0); MCHC 31.1 g/dL (28.0-37.0); MCV 77.6 fL (80.0-100.0); MPV 8.6 fl. (7.2-11.1); RBC 3.13 mil/uL (4.50-6.00); RDW-CV 21.4 % (10.5-14.5); WBC 28.3 thou/uL (4.0-11.0)
[2020-12-11 20:45] LABS: CALCIUM 7.8 mg/dL (8.5-10.1); MAGNESIUM 2.9 mg/dL (1.8-2.4); PHOSPHORUS* 6.7 mg/dL (2.5-4.9); POTASSIUM 5.2 mmol/L (3.5-5.1)
[2020-12-12] VITALS (107 sets, daily range): BP systolic 64–155; BP diastolic 8–74
[2020-12-12 00:51] LABS: CALCIUM 7.5 mg/dL (8.5-10.1); CREATININE 2.8 mg/dL (0.6-1.3); POTASSIUM 4.7 mmol/L (3.5-5.1)
[2020-12-12 03:34] LABS: MCH 24.3 pg (26.0-34.0); MCHC 31.4 g/dL (28.0-37.0); MCV 77.4 fL (80.0-100.0); MPV 9.6 fl. (7.2-11.1); NUCLEATED RBCS 3 /100WBC; PLATELET COUNT* 140 thou/uL (150-400); RBC 2.47 mil/uL (4.50-6.00); RDW-CV 20.6 % (10.5-14.5); WBC 29.5 thou/uL (4.0-11.0)
[2020-12-12 03:42] LABS: HEMATOCRIT 19.2 % (42.0-52.0)
[2020-12-12 04:20] LABS: CALCIUM 7.4 mg/dL (8.5-10.1); MAGNESIUM 2.7 mg/dL (1.8-2.4); POTASSIUM 4.9 mmol/L (3.5-5.1)
[2020-12-12 04:23] LABS: ALBUMIN 2.7 g/dL (3.4-5.0); CALCIUM 7.4 mg/dL (8.5-10.1); CREATININE 3.1 mg/dL (0.6-1.3); POTASSIUM 4.8 mmol/L (3.5-5.1); TOTAL BILIRUBIN 0.8 mg/dL (<0.1-1.0); TOTAL PROTEIN 5.6 g/dL (6.4-8.2)
[2020-12-12 06:03] LABS: ABSOLUTE LYMPHOCYTES 2.7 thou/uL (0.8-5.3); ABSOLUTE MONOCYTES 0.3 thou/uL (0.0-1.2); ABSOLUTE NEUTROPHILS 26.6 thou/uL (1.6-8.1); HYPOCHROMASIA 1+; PLATELET ESTIMATE DECREASED; POLYCHROMASIA 1+
[2020-12-12 06:04] LABS: ANISOCYTOSIS 1+; MICROCYTES 1+; POIKILOCYTOSIS 1+
[2020-12-12 08:07] LABS: APTT 69.3 Seconds (25.0-31.3); INR 1.6; PROTIME 16.8 Seconds (9.20-11.50)
[2020-12-12 08:38] LABS: BE -9.1 mmol/L (-2 to +3); PCO2 42.1 mmHg (35.0-45.0)
[2020-12-12 08:43] LABS: PO2 58.8 mmHg (75.0-100.0); pH 7.237 (7.340-7.450)
[2020-12-12 12:14] LABS: BE -6.7 mmol/L (-2 to +3); PO2 63.6 mmHg (75.0-100.0)
[2020-12-12 12:25] LABS: PCO2 56.8 mmHg (35.0-45.0); pH 7.186 (7.340-7.450)
--- NOTE | 2020-12-12 15:05 | CON ---
[address] [address] CONSULTATION Name: NICHOLAS UREÑA Room: [address] IN M.R.#: [id number] Admission: 11/29/20 Attend Phys: Rome Siegel MD Discharge: Date of : 54 Report #: [id number] THIS REPORT FOR: cc: Dedrick Rosado MD, Srinath MD ~ Haylie Lees MD DATE OF SERVICE: 12/11/2020 NEPHROLOGY CONSULTATION CONSULTING PHYSICIAN: Dr. Siegel. REASON FOR CONSULTATION: Acute kidney injury. HISTORY OF PRESENT ILLNESS: A 70-year-old gentleman initially admitted on 11/28 from assisted living facility due to altered mental status and hypoxia. He was COVID-19 positive and presently is critically ill in the ICU on two vasopressors, intubated, receiving antibiotics, being followed by Pulmonary and Infectious Disease. He is requiring blood transfusions. Hemoglobin was 6.7. Urine output has dropped off. His creatinine is climbing as acidotic, has evidence of volume overload and pancreatitis on CT. His family was contacted earlier today and informed that he may need dialysis and they were okay with proceeding, he is also hyperkalemic. REVIEW OF SYSTEMS: Constitutional, psych, heme, eyes, ENT, respiratory, cardiac, GI, , endocrine, all negative except as documented above and as best as can be ascertained from chart review. PAST MEDICAL HISTORY: Schizophrenia, hypothyroidism, diabetes, AFib, osteoporosis. FAMILY HISTORY: Not pertinent in this 70-year-old gentleman. SOCIAL HISTORY: Resides in an assisted care facility. CURRENT MEDICATIONS: Reviewed. PHYSICAL EXAMINATION: VITAL SIGNS: Blood pressure is 84/48, pulse 75, respirations 16, temperature 36.5. GENERAL: Intubated and sedated. EYES: Closed. EARS: Externally normal. CARDIOVASCULAR: [place] [address] CONSULTATION Name: NICHOLAS UREÑA Room: [address]#: [id number] Admission: 11/29/20 Attend Phys: Rome Siegel MD Discharge: Date of : 54 Report #: [id number] LUNGS: Symmetric expansion. ABDOMEN: Distended. LABORATORY DATA: White cell count 33, hemoglobin is 7.6, platelets 224. Sodium 139, potassium 5.6, chloride 104, bicarbonate 24, BUN 80, creatinine 2.8, glucose 273, calcium 7.3, magnesium 2.7, albumin 1.8. ASSESSMENT AND PLAN: The patient was examined at a distance due to COVID-19 positivity and need to minimize exposure to preserve PPE. ASSESSMENT: 1. Acute kidney injury in the setting of shock with a creatinine of 2.8, on 12/11, it was 1.0 on 12/09. UA noted. CT noted. Oropeza catheter. Suspect to be misplaced in the prostatic urethra, kidneys were okay on the CT. 2. COVID-19 infection, severe. 3. Respiratory failure. 4. Shock. 5. History of atrial fibrillation. 6. Schizophrenia. 7. Diabetes. 8. Right upper extremity deep venous thrombosis. 9. Ileus. 10. Acute pancreatitis suggested on CT with a lipase of 782. 11. Volume overload. 12. Metabolic acidosis with an ABG of 7.29, 40 and 19 on 12/11. 13. Anemia with hemoglobin of 6.7 on 12/11. 14. Hypoalbuminemia with an albumin of 1.8. PLAN: 1. The patient is oliguric acidotic, hyperkalemic and has volume overload. He will need CRRT. I have discussed with the dialysis nurse and CRRT will be initiated. 2. Currently on vasopressor and antibiotics. 3. Hyperkalemia will be addressed with dialysis. We will ask nursing to reposition Oropeza catheter if not already done. We will follow along with you. The patient is critically ill. Thirty-five minutes critical care time spent. Thank you for requesting my opinion in the care and management of this patient. <ELECTRONICALLY SIGNED> By: Haylie Lees MD 12/12/20 1505 1441 1555Abiflo Lees MD /nt
[2020-12-12 15:07] LABS: HEMATOCRIT 21.4 % (42.0-52.0); MCH 25.3 pg (26.0-34.0); MCHC 31.5 g/dL (28.0-37.0); MCV 80.4 fL (80.0-100.0); MPV 9.3 fl. (7.2-11.1); RBC 2.67 mil/uL (4.50-6.00); RDW-CV 19.5 % (10.5-14.5); WBC 30.6 thou/uL (4.0-11.0)
[2020-12-12 15:11] LABS: HEMOGLOBIN 6.7 gm/dL (14.0-18.0)
[2020-12-12 15:24] LABS: CALCIUM 7.4 mg/dL (8.5-10.1); MAGNESIUM 2.6 mg/dL (1.8-2.4); PHOSPHORUS* 6.4 mg/dL (2.5-4.9)
[2020-12-12 21:01] LABS: BE -4.9 mmol/L (-2 to +3); PCO2 49.6 mmHg (35.0-45.0); PO2 75.3 mmHg (75.0-100.0)
[2020-12-12 21:04] LABS: HEMATOCRIT 21.8 % (42.0-52.0); HEMOGLOBIN 7.1 gm/dL (14.0-18.0); MCHC 32.5 g/dL (28.0-37.0); MPV 9.1 fl. (7.2-11.1); RBC 2.73 mil/uL (4.50-6.00); RDW-CV 19.8 % (10.5-14.5); WBC 33.9 thou/uL (4.0-11.0)
[2020-12-12 21:09] LABS: CALCIUM 7.8 mg/dL (8.5-10.1); CREATININE 2.6 mg/dL (0.6-1.3); POTASSIUM 4.4 mmol/L (3.5-5.1)
[2020-12-12 21:10] LABS: pH 7.262 (7.340-7.450)
[2020-12-12 22:54] LABS: MAGNESIUM 2.3 mg/dL (1.8-2.4); PHOSPHORUS* 5.3 mg/dL (2.5-4.9)
[2020-12-13] VITALS (71 sets, daily range): BP systolic 73–175; BP diastolic 39–72
[2020-12-13 02:06] LABS: HEPATITIS B SURFACE AG Negative (Negative)
[2020-12-13 05:12] LABS: PHOSPHORUS* 4.7 mg/dL (2.5-4.9)
[2020-12-13 05:15] LABS: ALBUMIN 2.6 g/dL (3.4-5.0); APTT 32.2 Seconds (25.0-31.3); CALCIUM 8.1 mg/dL (8.5-10.1); CREATININE 2.2 mg/dL (0.6-1.3); MAGNESIUM 2.3 mg/dL (1.8-2.4); POTASSIUM 4.6 mmol/L (3.5-5.1); TOTAL BILIRUBIN 0.8 mg/dL (<0.1-1.0); TOTAL PROTEIN 5.7 g/dL (6.4-8.2)
[2020-12-13 05:33] LABS: MCH 25.8 pg (26.0-34.0); MCHC 32.4 g/dL (28.0-37.0); MCV 79.7 fL (80.0-100.0); MPV 9.5 fl. (7.2-11.1); NUCLEATED RBCS 9 /100WBC; PLATELET COUNT* 121 thou/uL (150-400); RBC 2.44 mil/uL (4.50-6.00); RDW-CV 19.3 % (10.5-14.5); WBC 31.3 thou/uL (4.0-11.0)
[2020-12-13 05:47] LABS: HEMOGLOBIN 6.3 gm/dL (14.0-18.0)
[2020-12-13 05:48] LABS: HEMATOCRIT 19.5 % (42.0-52.0)
[2020-12-13 08:40] LABS: ABSOLUTE LYMPHOCYTES 0.9 thou/uL (0.8-5.3); ABSOLUTE MONOCYTES 3.1 thou/uL (0.0-1.2); ABSOLUTE NEUTROPHILS 27.2 thou/uL (1.6-8.1); ATYPICAL LYMPHS 1 %; METAMYELOCYTES 2 %
[2020-12-13 08:45] LABS: PLATELET ESTIMATE DECREASED; POLYCHROMASIA 2+; TARGET CELLS Occasional
[2020-12-13 08:46] LABS: ANISOCYTOSIS 2+; BURR CELLS Occasional; HYPOCHROMASIA 3+; MICROCYTES 1+
[2020-12-13 08:57] LABS: BE -4.4 mmol/L (-2 to +3); pH 7.339 (7.340-7.450)
[2020-12-13 14:47] LABS: HEMATOCRIT 21.2 % (42.0-52.0)
[2020-12-13 14:53] LABS: HEMOGLOBIN 6.9 gm/dL (14.0-18.0)
[2020-12-13 15:08] LABS: CALCIUM 7.7 mg/dL (8.5-10.1); MAGNESIUM 2.1 mg/dL (1.8-2.4); PHOSPHORUS* 4.5 mg/dL (2.5-4.9); POTASSIUM 4.4 mmol/L (3.5-5.1)
[2020-12-13 17:01] LABS: BE -5.2 mmol/L (-2 to +3); PCO2 38.7 mmHg (35.0-45.0); PO2 81.8 mmHg (75.0-100.0); pH 7.336 (7.340-7.450)
[2020-12-13 21:40] LABS: HEMATOCRIT 22.4 % (42.0-52.0); HEMOGLOBIN 7.4 gm/dL (14.0-18.0)
[2020-12-13 21:46] LABS: CALCIUM 7.8 mg/dL (8.5-10.1); MAGNESIUM 2.1 mg/dL (1.8-2.4); PHOSPHORUS* 4.2 mg/dL (2.5-4.9); POTASSIUM 4.2 mmol/L (3.5-5.1)
[2020-12-14] VITALS (45 sets, daily range): BP systolic 69–143; BP diastolic 41–75
[2020-12-14 03:52] LABS: ABSOLUTE LYMPHOCYTES 1.4 thou/uL (0.8-5.3); BASOPHILS 0.2 %; HEMATOCRIT 21.5 % (42.0-52.0); HEMOGLOBIN 7.1 gm/dL (14.0-18.0); MCH 27.4 pg (26.0-34.0); MCHC 33.1 g/dL (28.0-37.0); MCV 82.7 fL (80.0-100.0); MONOCYTES 5.5 %; MPV 9.4 fl. (7.2-11.1); NUCLEATED RBCS 5 /100WBC; PLATELET COUNT* 74 thou/uL (150-400); POLYS 86.3 %; RDW-CV 19.3 % (10.5-14.5); WBC 17.3 thou/uL (4.0-11.0)
[2020-12-14 04:21] LABS: ALBUMIN 2.3 g/dL (3.4-5.0); CALCIUM 7.9 mg/dL (8.5-10.1); CREATININE 1.7 mg/dL (0.6-1.3); MAGNESIUM 2.1 mg/dL (1.8-2.4); PHOSPHORUS* 3.9 mg/dL (2.5-4.9); TOTAL BILIRUBIN 0.7 mg/dL (<0.1-1.0); TOTAL PROTEIN 5.1 g/dL (6.4-8.2)
[2020-12-14 04:27] LABS: PREALBUMIN 15.2 mg/dL (18.0-35.7)
[2020-12-14 08:39] LABS: WBC 18.1 thou/uL (4.0-11.0)
[2020-12-14 08:40] LABS: HEMATOCRIT 20.4 % (42.0-52.0); MCH 27.3 pg (26.0-34.0); MCV 82.8 fL (80.0-100.0); RBC 2.46 mil/uL (4.50-6.00); RDW-CV 19.3 % (10.5-14.5)
[2020-12-14 08:42] LABS: HEMOGLOBIN 6.7 gm/dL (14.0-18.0)
[2020-12-14 08:45] LABS: BE -1.9 mmol/L (-2 to +3); PCO2 38.8 mmHg (35.0-45.0); PO2 62.7 mmHg (75.0-100.0); pH 7.388 (7.340-7.450)
[2020-12-14 08:55] LABS: CALCIUM 7.6 mg/dL (8.5-10.1); CREATININE 1.6 mg/dL (0.6-1.3); PHOSPHORUS* 3.6 mg/dL (2.5-4.9); POTASSIUM 3.8 mmol/L (3.5-5.1)
[2020-12-14 15:55] LABS: HEMOGLOBIN 7.2 gm/dL (14.0-18.0)
[2020-12-14 15:59] LABS: HEMATOCRIT 21.8 % (42.0-52.0); MCH 28.4 pg (26.0-34.0); MCHC 33.1 g/dL (28.0-37.0); MCV 85.8 fL (80.0-100.0); RBC 2.54 mil/uL (4.50-6.00); RDW-CV 19.7 % (10.5-14.5)
[2020-12-14 16:07] LABS: CALCIUM 7.4 mg/dL (8.5-10.1); MAGNESIUM 2.1 mg/dL (1.8-2.4); PHOSPHORUS* 4.2 mg/dL (2.5-4.9); POTASSIUM 4.1 mmol/L (3.5-5.1)
[2020-12-14 17:15] LABS: BE -4.3 mmol/L (-2 to +3); PO2 62.9 mmHg (75.0-100.0)
[2020-12-14 17:16] LABS: pH 7.283 (7.340-7.450)
[2020-12-14 21:22] LABS: HEMOGLOBIN 7.9 gm/dL (14.0-18.0); RBC 2.81 mil/uL (4.50-6.00)
[2020-12-14 21:24] LABS: HEMATOCRIT 24.2 % (42.0-52.0); MCH 28.1 pg (26.0-34.0); MCHC 32.6 g/dL (28.0-37.0); MCV 86.1 fL (80.0-100.0); MPV 8.7 fl. (7.2-11.1); RDW-CV 19.8 % (10.5-14.5); WBC 20.4 thou/uL (4.0-11.0)
[2020-12-14 21:29] LABS: CALCIUM 7.8 mg/dL (8.5-10.1); CREATININE 1.9 mg/dL (0.6-1.3); MAGNESIUM 1.9 mg/dL (1.8-2.4); PHOSPHORUS* 3.7 mg/dL (2.5-4.9); POTASSIUM 4.1 mmol/L (3.5-5.1)
[2020-12-15] VITALS (104 sets, daily range): BP systolic 84–219; BP diastolic 41–115
[2020-12-15 03:14] LABS: ABSOLUTE BASOPHILS 0.1 thou/uL (0.0-0.2); ABSOLUTE LYMPHOCYTES 2.1 thou/uL (0.8-5.3); ABSOLUTE MONOCYTES 1.1 thou/uL (0.0-1.2); ABSOLUTE NEUTROPHILS 18.7 thou/uL (1.6-8.1); BASOPHILS 0.3 %; HEMATOCRIT 22.9 % (42.0-52.0); HEMOGLOBIN 7.7 gm/dL (14.0-18.0); LYMPHOCYTES 9.7 %; MCH 28.8 pg (26.0-34.0); MCHC 33.5 g/dL (28.0-37.0); MCV 85.9 fL (80.0-100.0); MONOCYTES 4.9 %; MPV 8.7 fl. (7.2-11.1); NUCLEATED RBCS 4 /100WBC; PLATELET COUNT* 66 thou/uL (150-400); POLYS 85.1 %; RBC 2.67 mil/uL (4.50-6.00)
[2020-12-15 03:22] LABS: ALBUMIN 2.1 g/dL (3.4-5.0); CALCIUM 7.6 mg/dL (8.5-10.1); CREATININE 1.8 mg/dL (0.6-1.3); POTASSIUM 4.3 mmol/L (3.5-5.1); TOTAL BILIRUBIN 0.6 mg/dL (<0.1-1.0); TOTAL PROTEIN 4.8 g/dL (6.4-8.2)
[2020-12-15 09:10] LABS: BE -3.1 mmol/L (-2 to +3); PO2 75.4 mmHg (75.0-100.0); pH 7.309 (7.340-7.450)
[2020-12-15 13:50] LABS: HEMATOCRIT 24.3 % (42.0-52.0)
[2020-12-15 13:51] LABS: HEMOGLOBIN 8.1 gm/dL (14.0-18.0); MCH 28.9 pg (26.0-34.0); MCHC 33.2 g/dL (28.0-37.0); MCV 86.9 fL (80.0-100.0); MPV 8.7 fl. (7.2-11.1); RBC 2.8 mil/uL (4.50-6.00); RDW-CV 20.1 % (10.5-14.5); WBC 22.8 thou/uL (4.0-11.0)
[2020-12-15 14:16] LABS: CALCIUM 7.8 mg/dL (8.5-10.1); CREATININE 1.7 mg/dL (0.6-1.3); MAGNESIUM 2.1 mg/dL (1.8-2.4); PHOSPHORUS* 3.4 mg/dL (2.5-4.9); POTASSIUM 4.1 mmol/L (3.5-5.1)
[2020-12-15 18:24] LABS: HEMATOCRIT 22.9 % (42.0-52.0); HEMOGLOBIN 7.6 gm/dL (14.0-18.0); MCH 28.6 pg (26.0-34.0); MCHC 33.2 g/dL (28.0-37.0); MCV 86.2 fL (80.0-100.0); MPV 8.8 fl. (7.2-11.1); RBC 2.66 mil/uL (4.50-6.00); RDW-CV 20.1 % (10.5-14.5); WBC 18.5 thou/uL (4.0-11.0)
[2020-12-15 18:37] LABS: CALCIUM 7.9 mg/dL (8.5-10.1); CREATININE 1.7 mg/dL (0.6-1.3); PHOSPHORUS* 3.2 mg/dL (2.5-4.9)
[2020-12-15 22:17] LABS: HEMOGLOBIN 8.5 gm/dL (14.0-18.0); MCHC 33.4 g/dL (28.0-37.0); MPV 8.8 fl. (7.2-11.1); RBC 2.94 mil/uL (4.50-6.00)
[2020-12-15 22:19] LABS: HEMATOCRIT 25.4 % (42.0-52.0); MCH 28.8 pg (26.0-34.0); MCV 86.4 fL (80.0-100.0); RDW-CV 20.1 % (10.5-14.5); WBC 23.1 thou/uL (4.0-11.0)
[2020-12-15 22:32] LABS: CALCIUM 8.4 mg/dL (8.5-10.1); CREATININE 1.6 mg/dL (0.6-1.3); PHOSPHORUS* 2.9 mg/dL (2.5-4.9); POTASSIUM 3.7 mmol/L (3.5-5.1)
[2020-12-16] VITALS (89 sets, daily range): BP systolic 85–249; BP diastolic 45–231
[2020-12-16 02:19] LABS: HEMOGLOBIN 8.5 gm/dL (14.0-18.0); MPV 8.9 fl. (7.2-11.1)
[2020-12-16 02:21] LABS: HEMATOCRIT 24.8 % (42.0-52.0); MCH 29.6 pg (26.0-34.0); MCHC 34.1 g/dL (28.0-37.0); MCV 86.8 fL (80.0-100.0); NUCLEATED RBCS 6 /100WBC; PLATELET COUNT* 62 thou/uL (150-400); RBC 2.85 mil/uL (4.50-6.00); RDW-CV 19.9 % (10.5-14.5); WBC 23.5 thou/uL (4.0-11.0)
[2020-12-16 02:26] LABS: ALBUMIN 2.4 g/dL (3.4-5.0); CALCIUM 7.9 mg/dL (8.5-10.1); CREATININE 1.7 mg/dL (0.6-1.3); MAGNESIUM 2.1 mg/dL (1.8-2.4); POTASSIUM 3.8 mmol/L (3.5-5.1); TOTAL BILIRUBIN 0.8 mg/dL (<0.1-1.0); TOTAL PROTEIN 5.3 g/dL (6.4-8.2)
[2020-12-16 02:59] LABS: ABSOLUTE LYMPHOCYTES 2.6 thou/uL (0.8-5.3); ABSOLUTE MONOCYTES 0.7 thou/uL (0.0-1.2); ABSOLUTE NEUTROPHILS 20.2 thou/uL (1.6-8.1)
[2020-12-16 03:02] LABS: ANISOCYTOSIS 1+; HYPOCHROMASIA 2+; PLATELET ESTIMATE DECREASED; POLYCHROMASIA 1+
[2020-12-16 03:03] LABS: POIKILOCYTOSIS 1+
[2020-12-16 06:28] LABS: HEMATOCRIT 24.6 % (42.0-52.0); HEMOGLOBIN 8.4 gm/dL (14.0-18.0); MCH 29.8 pg (26.0-34.0); MCHC 34.3 g/dL (28.0-37.0); MCV 86.8 fL (80.0-100.0); MPV 9.1 fl. (7.2-11.1); RBC 2.84 mil/uL (4.50-6.00); RDW-CV 20.5 % (10.5-14.5); WBC 25.9 thou/uL (4.0-11.0)
[2020-12-16 06:39] LABS: CALCIUM 7.7 mg/dL (8.5-10.1); CREATININE 1.5 mg/dL (0.6-1.3); MAGNESIUM 2.1 mg/dL (1.8-2.4); PHOSPHORUS* 2.2 mg/dL (2.5-4.9); POTASSIUM 4.2 mmol/L (3.5-5.1)
[2020-12-16 08:34] LABS: BE -0.6 mmol/L (-2 to +3); PO2 60.6 mmHg (75.0-100.0); pH 7.314 (7.340-7.450)
[2020-12-16 14:55] LABS: MPV 8.8 fl. (7.2-11.1)
[2020-12-16 14:57] LABS: HEMATOCRIT 25.3 % (42.0-52.0); HEMOGLOBIN 8.6 gm/dL (14.0-18.0); MCH 29.7 pg (26.0-34.0); MCV 87.5 fL (80.0-100.0); RBC 2.9 mil/uL (4.50-6.00); WBC 20.3 thou/uL (4.0-11.0)
[2020-12-16 15:19] LABS: CALCIUM 7.8 mg/dL (8.5-10.1); CREATININE 1.5 mg/dL (0.6-1.3); MAGNESIUM 2.1 mg/dL (1.8-2.4); PHOSPHORUS* 2.1 mg/dL (2.5-4.9)
[2020-12-16 19:51] LABS: RBC 3.02 mil/uL (4.50-6.00)
[2020-12-16 19:53] LABS: HEMATOCRIT 26.1 % (42.0-52.0); MCH 29.7 pg (26.0-34.0); MCHC 34.3 g/dL (28.0-37.0); MCV 86.4 fL (80.0-100.0); MPV 9.4 fl. (7.2-11.1); RDW-CV 20.2 % (10.5-14.5); WBC 22.5 thou/uL (4.0-11.0)
[2020-12-16 20:04] LABS: CALCIUM 8.1 mg/dL (8.5-10.1); CREATININE 1.3 mg/dL (0.6-1.3); MAGNESIUM 2.1 mg/dL (1.8-2.4); PHOSPHORUS* 2.3 mg/dL (2.5-4.9); POTASSIUM 4.4 mmol/L (3.5-5.1)
[2020-12-16 23:43] LABS: ABSOLUTE LYMPHOCYTES 0.8 thou/uL (0.8-5.3); ABSOLUTE MONOCYTES 0.3 thou/uL (0.0-1.2); ABSOLUTE NEUTROPHILS 20.1 thou/uL (1.6-8.1); BASOPHILS 0.1 %; HEMATOCRIT 25.2 % (42.0-52.0); HEMOGLOBIN 8.5 gm/dL (14.0-18.0); LYMPHOCYTES 3.9 %; MCH 29.5 pg (26.0-34.0); MCHC 33.6 g/dL (28.0-37.0); MCV 87.7 fL (80.0-100.0); MONOCYTES 1.5 %; MPV 9.3 fl. (7.2-11.1); NUCLEATED RBCS 8 /100WBC; POLYS 94.5 %; RBC 2.88 mil/uL (4.50-6.00); RDW-CV 20.2 % (10.5-14.5); WBC 21.3 thou/uL (4.0-11.0)
[2020-12-16 23:47] LABS: PLATELET COUNT* 43 thou/uL (150-400)
[2020-12-16 23:51] LABS: CALCIUM 8.4 mg/dL (8.5-10.1); CREATININE 1.4 mg/dL (0.6-1.3); MAGNESIUM 2.2 mg/dL (1.8-2.4); PHOSPHORUS* 2.7 mg/dL (2.5-4.9)
[2020-12-17] VITALS (77 sets, daily range): BP systolic 71–198; BP diastolic 43–88
[2020-12-17 04:05] LABS: ALBUMIN 2.3 g/dL (3.4-5.0); CREATININE 1.8 mg/dL (0.6-1.3); TOTAL BILIRUBIN 1.1 mg/dL (<0.1-1.0); TOTAL PROTEIN 5.5 g/dL (6.4-8.2)
[2020-12-17 04:12] LABS: PREALBUMIN 23.2 mg/dL (18.0-35.7)
[2020-12-17 04:16] LABS: POTASSIUM 6.1 mmol/L (3.5-5.1)
[2020-12-17 04:23] LABS: ABSOLUTE BASOPHILS 0.2 thou/uL (0.0-0.2); ABSOLUTE LYMPHOCYTES 1.1 thou/uL (0.8-5.3); ABSOLUTE MONOCYTES 0.3 thou/uL (0.0-1.2); ABSOLUTE NEUTROPHILS 22.9 thou/uL (1.6-8.1); BASOPHILS 0.7 %; HEMATOCRIT 28.4 % (42.0-52.0); HEMOGLOBIN 9.1 gm/dL (14.0-18.0); LYMPHOCYTES 4.5 %; MCH 28.8 pg (26.0-34.0); MCV 90.1 fL (80.0-100.0); MONOCYTES 1.2 %; MPV 9.7 fl. (7.2-11.1); NUCLEATED RBCS 7 /100WBC; POLYS 93.6 %; RBC 3.15 mil/uL (4.50-6.00); RDW-CV 20.6 % (10.5-14.5); WBC 24.4 thou/uL (4.0-11.0)
[2020-12-17 04:37] LABS: PLATELET COUNT* 43 thou/uL (150-400)
[2020-12-17 07:19] LABS: PCO2 68.8 mmHg (35.0-45.0); PO2 40.7 mmHg (75.0-100.0)
[2020-12-17 07:20] LABS: pH 7.084 (7.340-7.450)
[2020-12-17 10:51] LABS: BE -4.6 mmol/L (-2 to +3); PO2 63.7 mmHg (75.0-100.0)
[2020-12-17 10:54] LABS: PCO2 61.1 mmHg (35.0-45.0); pH 7.207 (7.340-7.450)
[2020-12-17 13:13] LABS: HEMOGLOBIN 9.5 gm/dL (14.0-18.0)
[2020-12-17 13:15] LABS: HEMATOCRIT 28.1 % (42.0-52.0); MCH 30.4 pg (26.0-34.0); MCHC 33.8 g/dL (28.0-37.0); MCV 90.2 fL (80.0-100.0); MPV 8.9 fl. (7.2-11.1); RBC 3.12 mil/uL (4.50-6.00); WBC 29.7 thou/uL (4.0-11.0)
[2020-12-17 13:27] LABS: MAGNESIUM 2.3 mg/dL (1.8-2.4); PHOSPHORUS* 3.9 mg/dL (2.5-4.9)
[2020-12-17 13:31] LABS: CREATININE 1.5 mg/dL (0.6-1.3)
[2020-12-17 13:32] LABS: CALCIUM 7.7 mg/dL (8.5-10.1)
[2020-12-17 17:24] LABS: HEMOGLOBIN 9.2 gm/dL (14.0-18.0)
[2020-12-17 17:26] LABS: HEMATOCRIT 26.2 % (42.0-52.0); MCH 31.5 pg (26.0-34.0); MCHC 35.3 g/dL (28.0-37.0); MCV 89.3 fL (80.0-100.0); MPV 8.7 fl. (7.2-11.1); RBC 2.94 mil/uL (4.50-6.00); RDW-CV 20.7 % (10.5-14.5); WBC 25.9 thou/uL (4.0-11.0)
[2020-12-17 17:40] LABS: CALCIUM 8.3 mg/dL (8.5-10.1); CREATININE 1.5 mg/dL (0.6-1.3); MAGNESIUM 2.2 mg/dL (1.8-2.4); PHOSPHORUS* 3.3 mg/dL (2.5-4.9); POTASSIUM 4.9 mmol/L (3.5-5.1)
[2020-12-17 21:17] LABS: HEMOGLOBIN 9.1 gm/dL (14.0-18.0)
[2020-12-17 21:18] LABS: HEMATOCRIT 25.4 % (42.0-52.0); MCH 31.6 pg (26.0-34.0); MCHC 35.8 g/dL (28.0-37.0); MCV 88.4 fL (80.0-100.0); MPV 8.8 fl. (7.2-11.1); RBC 2.88 mil/uL (4.50-6.00); RDW-CV 20.5 % (10.5-14.5); WBC 23.3 thou/uL (4.0-11.0)
[2020-12-17 21:32] LABS: POTASSIUM 4.5 mmol/L (3.5-5.1)
[2020-12-17 21:48] LABS: CREATININE 0.9 mg/dL (0.6-1.3)
[2020-12-18] VITALS (29 sets, daily range): BP systolic 72–248; BP diastolic 40–89
[2020-12-18 01:24] LABS: HEMATOCRIT 24.1 % (42.0-52.0); HEMOGLOBIN 8.6 gm/dL (14.0-18.0); MCH 31.6 pg (26.0-34.0); MCHC 35.7 g/dL (28.0-37.0); MCV 88.6 fL (80.0-100.0); MPV 7.8 fl. (7.2-11.1); NUCLEATED RBCS 22 /100WBC; RBC 2.72 mil/uL (4.50-6.00); RDW-CV 20.7 % (10.5-14.5); WBC 21.1 thou/uL (4.0-11.0)
[2020-12-18 01:25] LABS: PLATELET COUNT* 25 thou/uL (150-400)
[2020-12-18 01:37] LABS: CALCIUM 8.6 mg/dL (8.5-10.1); MAGNESIUM 2.1 mg/dL (1.8-2.4); PHOSPHORUS* 2.8 mg/dL (2.5-4.9); POTASSIUM 4.4 mmol/L (3.5-5.1)
[2020-12-18 02:13] LABS: ABSOLUTE LYMPHOCYTES 2.5 thou/uL (0.8-5.3); ABSOLUTE NEUTROPHILS 18.6 thou/uL (1.6-8.1); ATYPICAL LYMPHS 1 %; PLATELET ESTIMATE DECREASED
[2020-12-18 02:15] LABS: ANISOCYTOSIS 2+
[2020-12-18 02:18] LABS: POLYCHROMASIA 2+
[2020-12-18 09:10] LABS: ABSOLUTE EOSINOPHILS 0.1 thou/uL (0.0-0.7); ABSOLUTE LYMPHOCYTES 0.7 thou/uL (0.8-5.3); ABSOLUTE MONOCYTES 0.3 thou/uL (0.0-1.2); ABSOLUTE NEUTROPHILS 17.4 thou/uL (1.6-8.1); BASOPHILS 0.1 %; EOSINOPHILS 0.5 %; HEMATOCRIT 23.9 % (42.0-52.0); HEMOGLOBIN 8.2 gm/dL (14.0-18.0); LYMPHOCYTES 3.8 %; MCH 30.4 pg (26.0-34.0); MCHC 34.5 g/dL (28.0-37.0); MCV 88.1 fL (80.0-100.0); MONOCYTES 1.6 %; MPV 9.1 fl. (7.2-11.1); NUCLEATED RBCS 16 /100WBC; RBC 2.71 mil/uL (4.50-6.00); RDW-CV 20.8 % (10.5-14.5); WBC 18.5 thou/uL (4.0-11.0)
[2020-12-18 09:12] LABS: PLATELET COUNT* 31 thou/uL (150-400)
[2020-12-18 09:15] LABS: CALCIUM 7.9 mg/dL (8.5-10.1); CREATININE 1.2 mg/dL (0.6-1.3); PHOSPHORUS* 2.6 mg/dL (2.5-4.9); POTASSIUM 4.1 mmol/L (3.5-5.1)
[2020-12-18 09:42] LABS: BE -1.1 mmol/L (-2 to +3); PO2 105.4 mmHg (75.0-100.0)
[2020-12-18 09:45] LABS: PCO2 59.2 mmHg (35.0-45.0); pH 7.266 (7.340-7.450)
[2020-12-18 15:27] LABS: HEMOGLOBIN 7.7 gm/dL (14.0-18.0)
[2020-12-18 15:28] LABS: HEMATOCRIT 22.4 % (42.0-52.0); MCH 30.2 pg (26.0-34.0); MCHC 34.5 g/dL (28.0-37.0); MCV 87.6 fL (80.0-100.0); MPV 10.6 fl. (7.2-11.1); RBC 2.56 mil/uL (4.50-6.00); RDW-CV 20.7 % (10.5-14.5); WBC 17.2 thou/uL (4.0-11.0)
[2020-12-18 15:38] LABS: BE -0.8 mmol/L (-2 to +3); pH 7.325 (7.340-7.450)
[2020-12-18 15:42] LABS: PO2 134.4 mmHg (75.0-100.0)
[2020-12-18 15:54] LABS: CALCIUM 8.4 mg/dL (8.5-10.1); PHOSPHORUS* 2.4 mg/dL (2.5-4.9)
[2020-12-18 20:13] LABS: HEMATOCRIT 21.9 % (42.0-52.0); HEMOGLOBIN 7.7 gm/dL (14.0-18.0); MCH 31.2 pg (26.0-34.0); MCHC 35.2 g/dL (28.0-37.0); MCV 88.6 fL (80.0-100.0); MPV 10.5 fl. (7.2-11.1); RBC 2.47 mil/uL (4.50-6.00); RDW-CV 20.9 % (10.5-14.5)
[2020-12-18 20:23] LABS: CALCIUM 7.6 mg/dL (8.5-10.1); CREATININE 1.1 mg/dL (0.6-1.3); PHOSPHORUS* 2.5 mg/dL (2.5-4.9); POTASSIUM 3.7 mmol/L (3.5-5.1)
[2020-12-19] VITALS (53 sets, daily range): BP systolic 92–158; BP diastolic 39–60
[2020-12-19 00:26] LABS: RDW-CV 20.8 % (10.5-14.5)
[2020-12-19 00:28] LABS: HEMATOCRIT 20.7 % (42.0-52.0); HEMOGLOBIN 7.3 gm/dL (14.0-18.0); MCH 31.3 pg (26.0-34.0); MCHC 35.5 g/dL (28.0-37.0); MCV 88.2 fL (80.0-100.0); MPV 10.2 fl. (7.2-11.1); RBC 2.35 mil/uL (4.50-6.00); WBC 15.9 thou/uL (4.0-11.0)
[2020-12-19 00:31] LABS: CALCIUM 7.9 mg/dL (8.5-10.1); CREATININE 1.1 mg/dL (0.6-1.3); MAGNESIUM 1.9 mg/dL (1.8-2.4)
[2020-12-19 04:12] LABS: ABSOLUTE BASOPHILS 0.1 thou/uL (0.0-0.2); ABSOLUTE EOSINOPHILS 0.1 thou/uL (0.0-0.7); ABSOLUTE LYMPHOCYTES 0.5 thou/uL (0.8-5.3); ABSOLUTE MONOCYTES 0.3 thou/uL (0.0-1.2); ABSOLUTE NEUTROPHILS 16.2 thou/uL (1.6-8.1); BASOPHILS 0.5 %; EOSINOPHILS 0.4 %; HEMATOCRIT 20.6 % (42.0-52.0); HEMOGLOBIN 7.3 gm/dL (14.0-18.0); LYMPHOCYTES 2.7 %; MCHC 35.3 g/dL (28.0-37.0); MCV 87.9 fL (80.0-100.0); MONOCYTES 1.5 %; MPV 9.3 fl. (7.2-11.1); NUCLEATED RBCS 26 /100WBC; POLYS 94.9 %; RBC 2.34 mil/uL (4.50-6.00); RDW-CV 20.5 % (10.5-14.5); WBC 17.1 thou/uL (4.0-11.0)
[2020-12-19 04:23] LABS: PHOSPHORUS* 2.1 mg/dL (2.5-4.9)
[2020-12-19 04:26] LABS: PLATELET COUNT* 31 thou/uL (150-400)
[2020-12-19 04:30] LABS: ALBUMIN 2.3 g/dL (3.4-5.0); CALCIUM 7.9 mg/dL (8.5-10.1); POTASSIUM 3.9 mmol/L (3.5-5.1); TOTAL BILIRUBIN 1.5 mg/dL (<0.1-1.0)
[2020-12-19 05:14] LABS: TOTAL PROTEIN 4.7 g/dL (6.4-8.2)
[2020-12-19 08:30] LABS: RBC 2.37 mil/uL (4.50-6.00)
[2020-12-19 08:32] LABS: HEMATOCRIT 20.7 % (42.0-52.0); HEMOGLOBIN 7.3 gm/dL (14.0-18.0); MCH 30.7 pg (26.0-34.0); MCHC 35.1 g/dL (28.0-37.0); MCV 87.6 fL (80.0-100.0); MPV 11.9 fl. (7.2-11.1); RDW-CV 21.1 % (10.5-14.5); WBC 18.1 thou/uL (4.0-11.0)
[2020-12-19 08:36] LABS: CALCIUM 7.8 mg/dL (8.5-10.1); CREATININE 0.9 mg/dL (0.6-1.3); MAGNESIUM 1.9 mg/dL (1.8-2.4); PHOSPHORUS* 2.1 mg/dL (2.5-4.9); POTASSIUM 4.3 mmol/L (3.5-5.1)
[2020-12-19 08:50] LABS: BE -0.3 mmol/L (-2 to +3); PO2 63.2 mmHg (75.0-100.0)
[2020-12-19 08:54] LABS: PCO2 54.4 mmHg (35.0-45.0)
[2020-12-19 11:24] LABS: CREATININE 1.6 mg/dL (0.6-1.3)
[2020-12-19 11:27] LABS: MCH 30.5 pg (26.0-34.0)
[2020-12-19 11:28] LABS: HEMATOCRIT 20.4 % (42.0-52.0); MCHC 34.6 g/dL (28.0-37.0); MCV 88.2 fL (80.0-100.0); MPV 11.3 fl. (7.2-11.1); RBC 2.31 mil/uL (4.50-6.00); RDW-CV 21.4 % (10.5-14.5); WBC 17.3 thou/uL (4.0-11.0)
[2020-12-19 11:42] LABS: CALCIUM 8.1 mg/dL (8.5-10.1); MAGNESIUM 1.9 mg/dL (1.8-2.4); PHOSPHORUS* 1.9 mg/dL (2.5-4.9); POTASSIUM 4.1 mmol/L (3.5-5.1)
[2020-12-19 16:19] LABS: HEMOGLOBIN 7.3 gm/dL (14.0-18.0); WBC 19.9 thou/uL (4.0-11.0)
[2020-12-19 16:21] LABS: HEMATOCRIT 20.8 % (42.0-52.0); MCH 30.8 pg (26.0-34.0); MCHC 35.2 g/dL (28.0-37.0); MCV 87.6 fL (80.0-100.0); RBC 2.37 mil/uL (4.50-6.00); RDW-CV 21.2 % (10.5-14.5)
[2020-12-19 16:23] LABS: CALCIUM 8.1 mg/dL (8.5-10.1); MAGNESIUM 1.9 mg/dL (1.8-2.4); PHOSPHORUS* 1.8 mg/dL (2.5-4.9); POTASSIUM 3.8 mmol/L (3.5-5.1)
[2020-12-19 17:47] LABS: BE 0.4 mmol/L (-2 to +3); PO2 63.1 mmHg (75.0-100.0); pH 7.321 (7.340-7.450)
[2020-12-19 20:18] LABS: MCH 28.8 pg (26.0-34.0)
[2020-12-19 20:19] LABS: HEMATOCRIT 21.3 % (42.0-52.0); MCHC 32.5 g/dL (28.0-37.0); MCV 88.6 fL (80.0-100.0); MPV 8.9 fl. (7.2-11.1); RBC 2.4 mil/uL (4.50-6.00); RDW-CV 21.8 % (10.5-14.5); WBC 18.3 thou/uL (4.0-11.0)
[2020-12-19 20:22] LABS: HEMOGLOBIN 6.9 gm/dL (14.0-18.0)
[2020-12-19 20:25] LABS: CALCIUM 8.4 mg/dL (8.5-10.1); CREATININE 0.9 mg/dL (0.6-1.3); MAGNESIUM 2.2 mg/dL (1.8-2.4); POTASSIUM 3.7 mmol/L (3.5-5.1)
[2020-12-20] VITALS (76 sets, daily range): BP systolic 88–168; BP diastolic 36–64
[2020-12-20 00:24] LABS: HEMATOCRIT 21.6 % (42.0-52.0); MCH 28.4 pg (26.0-34.0); MCHC 32.4 g/dL (28.0-37.0); MCV 87.9 fL (80.0-100.0); MPV 9.1 fl. (7.2-11.1); RBC 2.46 mil/uL (4.50-6.00); RDW-CV 20.6 % (10.5-14.5); WBC 16.6 thou/uL (4.0-11.0)
[2020-12-20 00:33] LABS: CALCIUM 8.5 mg/dL (8.5-10.1); CREATININE 0.9 mg/dL (0.6-1.3); MAGNESIUM 2.2 mg/dL (1.8-2.4); PHOSPHORUS* 2.4 mg/dL (2.5-4.9)
[2020-12-20 04:20] LABS: ABSOLUTE LYMPHOCYTES 0.6 thou/uL (0.8-5.3); ABSOLUTE MONOCYTES 0.3 thou/uL (0.0-1.2); ABSOLUTE NEUTROPHILS 16.5 thou/uL (1.6-8.1); BASOPHILS 0.2 %; EOSINOPHILS 0.2 %; HEMATOCRIT 24.9 % (42.0-52.0); HEMOGLOBIN 8.4 gm/dL (14.0-18.0); LYMPHOCYTES 3.4 %; MCH 29.4 pg (26.0-34.0); MCHC 33.5 g/dL (28.0-37.0); MCV 87.7 fL (80.0-100.0); MONOCYTES 1.6 %; MPV 9.4 fl. (7.2-11.1); NUCLEATED RBCS 31 /100WBC; POLYS 94.6 %; RBC 2.84 mil/uL (4.50-6.00); RDW-CV 19.5 % (10.5-14.5); WBC 17.4 thou/uL (4.0-11.0)
[2020-12-20 04:30] LABS: ALBUMIN 2.4 g/dL (3.4-5.0); CALCIUM 8.3 mg/dL (8.5-10.1); MAGNESIUM 1.9 mg/dL (1.8-2.4); POTASSIUM 4.1 mmol/L (3.5-5.1); TOTAL BILIRUBIN 1.9 mg/dL (<0.1-1.0); TOTAL PROTEIN 5.4 g/dL (6.4-8.2)
[2020-12-20 04:40] LABS: PLATELET COUNT* 29 thou/uL (150-400)
[2020-12-20 08:15] LABS: BE -1.3 mmol/L (-2 to +3); PO2 70.9 mmHg (75.0-100.0); pH 7.302 (7.340-7.450)
[2020-12-20 08:17] LABS: PCO2 52.3 mmHg (35.0-45.0)
[2020-12-20 08:32] LABS: WBC 15.3 thou/uL (4.0-11.0)
[2020-12-20 08:33] LABS: HEMATOCRIT 23.8 % (42.0-52.0); MCH 29.7 pg (26.0-34.0); MCHC 33.7 g/dL (28.0-37.0); MCV 87.9 fL (80.0-100.0); MPV 9.5 fl. (7.2-11.1); RBC 2.71 mil/uL (4.50-6.00)
[2020-12-20 08:49] LABS: CALCIUM 7.9 mg/dL (8.5-10.1); PHOSPHORUS* 2.3 mg/dL (2.5-4.9); POTASSIUM 4.3 mmol/L (3.5-5.1)
--- NOTE | 2020-12-20 11:50 | EKG ---
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 Science Technician: UNKNOWN : 1950 Requested By: Janae Thornton Order Number: [id number] Jose MD: Narciso Hendricks Measurements Intervals [place] Rate: 70 P: 52 OR: 190 QRS: 79 QRSD: 100 T: 49 QT: 475 QTc: 513 Interpretive Statements Sinus rhythm Abnormal R-wave progression, early transition Borderline T wave abnormalities Prolonged QT interval Compared to ECG 12/06/2020 04:48:22 Prolonged QT interval now present Sinus bradycardia no longer present First degree AV block no longer present T-wave abnormality still present Electronically Signed On 12-20-2020 11:50:29 TABLE OPERATOR by Narciso Hendricks [email or web address] <ELECTRONICALLY SIGNED> By: Narciso Hendricks MD, [facility] 12/20/20 1150 1629 1629 Narciso Hendricks MD, [facility] /EPI
--- NOTE | 2020-12-20 11:54 | EKG ---
[place] [address] ELECTROCARDIOGRAM REPORT Name: NICHOLAS UREÑA Room: [address] ADM IN M.R.#: [id number] Admission: 11/29/20 Attend Phys: Rome Siegel, Discharge: Date of : 54 Date of Service: 12/20/20 1002 Report #: [id number] THIS REPORT FOR: //name// [facility] Test Date: 2020-12-20 Test Time: 10:02:29 Pat Name: NICHOLAS UREÑA Department: Room: [address] Gender: M Occupational Therapy Aides Teacher: [id number] : 1950 Requested By: Janae Thornton Order Number: [id number] Reading MD: Narciso Hendricks Measurements Intervals [place] Rate: 59 P: 35 MD: 206 QRS: 61 QRSD: 95 T: 38 QT: 493 QTc: 489 Interpretive Statements Sinus rhythm Borderline T wave abnormalities Borderline prolonged QT interval Compared to ECG 12/19/2020 16:29:07 No significant changes Electronically Signed On 12-20-2020 11:54:13 FILTER TIP CATCHER by Narciso Hendricks [email or web address] <ELECTRONICALLY SIGNED> By: Narciso Hendricks MD, FACC 12/20/20 1154 1002 1002 Narciso Hendricks MD, [facility] /EPI
[2020-12-20 11:57] LABS: MCH 29.8 pg (26.0-34.0)
[2020-12-20 11:59] LABS: HEMATOCRIT 24.6 % (42.0-52.0); HEMOGLOBIN 8.3 gm/dL (14.0-18.0); MCHC 33.9 g/dL (28.0-37.0); MCV 87.8 fL (80.0-100.0); MPV 9.1 fl. (7.2-11.1); RBC 2.8 mil/uL (4.50-6.00); WBC 17.2 thou/uL (4.0-11.0)
[2020-12-20 12:08] LABS: CALCIUM 8.3 mg/dL (8.5-10.1); CREATININE 0.9 mg/dL (0.6-1.3); MAGNESIUM 1.9 mg/dL (1.8-2.4); POTASSIUM 3.9 mmol/L (3.5-5.1)
[2020-12-20 16:04] LABS: HEMOGLOBIN 8.5 gm/dL (14.0-18.0); MCV 87.9 fL (80.0-100.0); WBC 17.4 thou/uL (4.0-11.0)
[2020-12-20 16:06] LABS: MCH 29.7 pg (26.0-34.0); MCHC 33.8 g/dL (28.0-37.0); MPV 8.5 fl. (7.2-11.1); RBC 2.84 mil/uL (4.50-6.00); RDW-CV 20.2 % (10.5-14.5)
[2020-12-20 16:16] LABS: CALCIUM 8.3 mg/dL (8.5-10.1); CREATININE 0.9 mg/dL (0.6-1.3); MAGNESIUM 2.2 mg/dL (1.8-2.4); PHOSPHORUS* 1.7 mg/dL (2.5-4.9); POTASSIUM 3.9 mmol/L (3.5-5.1)
[2020-12-20 20:08] LABS: RBC 2.85 mil/uL (4.50-6.00)
[2020-12-20 20:10] LABS: HEMATOCRIT 25.3 % (42.0-52.0); HEMOGLOBIN 8.4 gm/dL (14.0-18.0); MCH 29.6 pg (26.0-34.0); MCHC 33.3 g/dL (28.0-37.0); MCV 88.7 fL (80.0-100.0); MPV 9.8 fl. (7.2-11.1); RDW-CV 20.4 % (10.5-14.5); WBC 16.4 thou/uL (4.0-11.0)
[2020-12-20 20:20] LABS: CALCIUM 8.6 mg/dL (8.5-10.1); CREATININE 0.9 mg/dL (0.6-1.3); MAGNESIUM 2.1 mg/dL (1.8-2.4); PHOSPHORUS* 2.2 mg/dL (2.5-4.9); POTASSIUM 3.8 mmol/L (3.5-5.1)
[2020-12-21] VITALS (468 sets, daily range): BP systolic 81–239; BP diastolic 37–197
[2020-12-21 00:07] LABS: HEMATOCRIT 25.1 % (42.0-52.0); HEMOGLOBIN 8.4 gm/dL (14.0-18.0); MCH 29.7 pg (26.0-34.0); MCHC 33.6 g/dL (28.0-37.0); MCV 88.4 fL (80.0-100.0); RBC 2.83 mil/uL (4.50-6.00); RDW-CV 20.7 % (10.5-14.5); WBC 14.5 thou/uL (4.0-11.0)
[2020-12-21 00:18] LABS: CALCIUM 8.1 mg/dL (8.5-10.1); PHOSPHORUS* 2.6 mg/dL (2.5-4.9); POTASSIUM 4.3 mmol/L (3.5-5.1)
[2020-12-21 04:06] LABS: ABSOLUTE LYMPHOCYTES 0.4 thou/uL (0.8-5.3); ABSOLUTE MONOCYTES 0.3 thou/uL (0.0-1.2); BASOPHILS 0.3 %; EOSINOPHILS 0.3 %; HEMATOCRIT 25.6 % (42.0-52.0); HEMOGLOBIN 8.7 gm/dL (14.0-18.0); LYMPHOCYTES 2.9 %; MCH 29.8 pg (26.0-34.0); MCHC 33.8 g/dL (28.0-37.0); MCV 88.3 fL (80.0-100.0); MONOCYTES 2.1 %; MPV 9.1 fl. (7.2-11.1); NUCLEATED RBCS 17 /100WBC; POLYS 94.4 %; RDW-CV 20.3 % (10.5-14.5); WBC 13.8 thou/uL (4.0-11.0)
[2020-12-21 04:22] LABS: ALBUMIN 2.5 g/dL (3.4-5.0); CALCIUM 7.9 mg/dL (8.5-10.1); CREATININE 1.1 mg/dL (0.6-1.3); POTASSIUM 4.1 mmol/L (3.5-5.1); TOTAL BILIRUBIN 1.9 mg/dL (<0.1-1.0); TOTAL PROTEIN 5.8 g/dL (6.4-8.2)
[2020-12-21 05:10] LABS: PLATELET COUNT* 32 thou/uL (150-400)
[2020-12-21 05:51] LABS: PHOSPHORUS* 2.4 mg/dL (2.5-4.9)
[2020-12-21 08:19] LABS: HEMATOCRIT 26.1 % (42.0-52.0); HEMOGLOBIN 8.7 gm/dL (14.0-18.0)
[2020-12-21 08:21] LABS: MCH 29.3 pg (26.0-34.0); MCHC 33.4 g/dL (28.0-37.0); MCV 87.8 fL (80.0-100.0); MPV 8.9 fl. (7.2-11.1); RBC 2.98 mil/uL (4.50-6.00); RDW-CV 20.4 % (10.5-14.5); WBC 14.3 thou/uL (4.0-11.0)
[2020-12-21 08:29] LABS: MAGNESIUM 2.1 mg/dL (1.8-2.4); PHOSPHORUS* 2.3 mg/dL (2.5-4.9); POTASSIUM 3.8 mmol/L (3.5-5.1)
[2020-12-21 08:38] LABS: BE 0.8 mmol/L (-2 to +3); PO2 79.8 mmHg (75.0-100.0); pH 7.323 (7.340-7.450)
[2020-12-21 08:43] LABS: PCO2 53.9 mmHg (35.0-45.0)
[2020-12-21 12:53] LABS: CALCIUM 8.2 mg/dL (8.5-10.1); CREATININE 1.1 mg/dL (0.6-1.3); HEMATOCRIT 26.2 % (42.0-52.0); HEMOGLOBIN 8.8 gm/dL (14.0-18.0); MAGNESIUM 2.1 mg/dL (1.8-2.4); MCH 29.6 pg (26.0-34.0); MCHC 33.7 g/dL (28.0-37.0); MCV 87.9 fL (80.0-100.0); MPV 9.2 fl. (7.2-11.1); PHOSPHORUS* 2.3 mg/dL (2.5-4.9); POTASSIUM 3.8 mmol/L (3.5-5.1); RBC 2.98 mil/uL (4.50-6.00); RDW-CV 20.5 % (10.5-14.5)
--- NOTE | 2020-12-21 15:53 | EKG ---
[place] [address] ELECTROCARDIOGRAM REPORT Name: URI UREÑAANJANATORIE Room: [address] ADM IN M.R.#: [id number] Admission: 11/29/20 Attend Phys: Rome Siegel, Discharge: Date of : 54 Date of Service: 12/21/20 0954 Report #: [id number] THIS REPORT FOR: //name// [facility] Test Date: 2020-12-21 Test Time: 09:54:32 Pat Name: NICHOLAS UREÑA Department: Room: [address] Gender: M Surgery Consultant: : 1950 Requested By: Janae Thornton Order Number: [id number] Reading MD: Tay Cano Measurements Intervals [place] Rate: 57 P: 31 KS: 203 QRS: 54 QRSD: 97 T: 30 QT: 421 QTc: 410 Interpretive Statements Sinus arrhythmia Nonspecific T wave abnormality Compared to ECG 12/20/2020 10:02:29 Sinus rhythm no longer present No significant changes noted Electronically Signed On 12-21-2020 15:52:58 NPS by Tay Cano [email or web address] <ELECTRONICALLY SIGNED> By: Tay Cano MD, FACC 12/21/20 1552 0954 0954 Tay Cano MD, [facility] /EPI
[2020-12-21 16:41] LABS: HEMOGLOBIN 8.5 gm/dL (14.0-18.0)
[2020-12-21 16:42] LABS: HEMATOCRIT 25.4 % (42.0-52.0); MCH 29.6 pg (26.0-34.0); MCHC 33.6 g/dL (28.0-37.0); MCV 88.3 fL (80.0-100.0); MPV 7.8 fl. (7.2-11.1); RBC 2.88 mil/uL (4.50-6.00); RDW-CV 21.1 % (10.5-14.5); WBC 11.4 thou/uL (4.0-11.0)
[2020-12-21 16:44] LABS: BE -3.5 mmol/L (-2 to +3); PCO2 43.1 mmHg (35.0-45.0)
[2020-12-21 16:49] LABS: PO2 47.5 mmHg (75.0-100.0)
[2020-12-21 16:54] LABS: CREATININE 1.3 mg/dL (0.6-1.3); MAGNESIUM 2.1 mg/dL (1.8-2.4); PHOSPHORUS* 2.4 mg/dL (2.5-4.9); POTASSIUM 4.2 mmol/L (3.5-5.1)
[2020-12-21 20:13] LABS: HEMATOCRIT 26.6 % (42.0-52.0); MCV 88.5 fL (80.0-100.0)
[2020-12-21 20:15] LABS: HEMOGLOBIN 8.9 gm/dL (14.0-18.0); MCH 29.5 pg (26.0-34.0); MCHC 33.3 g/dL (28.0-37.0); MPV 9.1 fl. (7.2-11.1); RDW-CV 21.9 % (10.5-14.5); WBC 11.6 thou/uL (4.0-11.0)
[2020-12-21 20:25] LABS: CALCIUM 7.8 mg/dL (8.5-10.1); CREATININE 1.3 mg/dL (0.6-1.3); MAGNESIUM 2.1 mg/dL (1.8-2.4); PHOSPHORUS* 2.4 mg/dL (2.5-4.9); POTASSIUM 4.2 mmol/L (3.5-5.1)
[2020-12-22] VITALS (27 sets, daily range): BP systolic 88–159; BP diastolic 49–73
[2020-12-22 00:39] LABS: HEMATOCRIT 26.7 % (42.0-52.0); MCH 29.7 pg (26.0-34.0); MCHC 33.8 g/dL (28.0-37.0); MCV 87.9 fL (80.0-100.0); MPV 9.3 fl. (7.2-11.1); NUCLEATED RBCS 10 /100WBC; RBC 3.03 mil/uL (4.50-6.00); RDW-CV 21.1 % (10.5-14.5); WBC 9.8 thou/uL (4.0-11.0)
[2020-12-22 00:57] LABS: PLATELET COUNT* 35 thou/uL (150-400)
[2020-12-22 00:59] LABS: CALCIUM 8.3 mg/dL (8.5-10.1); MAGNESIUM 2.1 mg/dL (1.8-2.4); PHOSPHORUS* 2.1 mg/dL (2.5-4.9); POTASSIUM 4.9 mmol/L (3.5-5.1)
[2020-12-22 02:32] LABS: ABSOLUTE EOSINOPHILS 0.3 thou/uL (0.0-0.7); ABSOLUTE LYMPHOCYTES 0.5 thou/uL (0.8-5.3); ABSOLUTE MONOCYTES 0.1 thou/uL (0.0-1.2); ABSOLUTE NEUTROPHILS 8.9 thou/uL (1.6-8.1); PLATELET ESTIMATE DECREASED
[2020-12-22 02:33] LABS: ANISOCYTOSIS 2+; HYPOCHROMASIA 1+; POIKILOCYTOSIS 2+; POLYCHROMASIA 1+; SCHISTOCYTES 2+; TARGET CELLS 1+
[2020-12-22 02:34] LABS: MICROCYTES Occasional
[2020-12-22 02:35] LABS: MACROCYTES 1+; OVALOCYTES Occasional; TEARDROPS 1+
[2020-12-22 04:31] LABS: ABSOLUTE BASOPHILS 0.1 thou/uL (0.0-0.2); ABSOLUTE LYMPHOCYTES 0.4 thou/uL (0.8-5.3); ABSOLUTE MONOCYTES 0.2 thou/uL (0.0-1.2); ABSOLUTE NEUTROPHILS 9.1 thou/uL (1.6-8.1); EOSINOPHILS 0.1 %; HEMATOCRIT 28.1 % (42.0-52.0); HEMOGLOBIN 9.4 gm/dL (14.0-18.0); LYMPHOCYTES 4.1 %; MCH 29.4 pg (26.0-34.0); MCHC 33.3 g/dL (28.0-37.0); MCV 88.2 fL (80.0-100.0); MONOCYTES 1.8 %; MPV 9.4 fl. (7.2-11.1); NUCLEATED RBCS 12 /100WBC; RBC 3.18 mil/uL (4.50-6.00); WBC 9.8 thou/uL (4.0-11.0)
[2020-12-22 05:09] LABS: PLATELET COUNT* 26 thou/uL (150-400)
[2020-12-22 05:33] LABS: ALBUMIN 2.6 g/dL (3.4-5.0); CALCIUM 8.4 mg/dL (8.5-10.1); POTASSIUM 4.3 mmol/L (3.5-5.1); TOTAL BILIRUBIN 1.8 mg/dL (<0.1-1.0); TOTAL PROTEIN 6.3 g/dL (6.4-8.2)
[2020-12-22 08:12] LABS: BE -1.9 mmol/L (-2 to +3); PCO2 42.6 mmHg (35.0-45.0); PO2 78.1 mmHg (75.0-100.0); pH 7.359 (7.340-7.450)
[2020-12-22 08:15] LABS: ABSOLUTE LYMPHOCYTES 0.4 thou/uL (0.8-5.3); ABSOLUTE MONOCYTES 0.2 thou/uL (0.0-1.2); ABSOLUTE NEUTROPHILS 9.8 thou/uL (1.6-8.1); BASOPHILS 0.3 %; EOSINOPHILS 0.3 %; HEMATOCRIT 29.5 % (42.0-52.0); HEMOGLOBIN 9.6 gm/dL (14.0-18.0); LYMPHOCYTES 3.7 %; MCH 28.6 pg (26.0-34.0); MCHC 32.6 g/dL (28.0-37.0); MCV 87.6 fL (80.0-100.0); MONOCYTES 1.9 %; MPV 7.3 fl. (7.2-11.1); NUCLEATED RBCS 16 /100WBC; POLYS 93.8 %; RBC 3.37 mil/uL (4.50-6.00); RDW-CV 20.9 % (10.5-14.5); WBC 10.5 thou/uL (4.0-11.0)
[2020-12-22 08:25] LABS: PLATELET COUNT* 18 thou/uL (150-400)
[2020-12-22 08:26] LABS: CALCIUM 8.6 mg/dL (8.5-10.1); MAGNESIUM 1.9 mg/dL (1.8-2.4); PHOSPHORUS* 1.8 mg/dL (2.5-4.9); POTASSIUM 3.9 mmol/L (3.5-5.1)
[2020-12-22 12:12] LABS: HEMATOCRIT 30.2 % (42.0-52.0); HEMOGLOBIN 9.9 gm/dL (14.0-18.0); MCH 28.8 pg (26.0-34.0); MCHC 32.7 g/dL (28.0-37.0); MCV 88.1 fL (80.0-100.0); MPV 8.4 fl. (7.2-11.1); RBC 3.43 mil/uL (4.50-6.00); RDW-CV 21.3 % (10.5-14.5)
[2020-12-22 12:28] LABS: CALCIUM 8.9 mg/dL (8.5-10.1); CREATININE 0.9 mg/dL (0.6-1.3); PHOSPHORUS* 1.9 mg/dL (2.5-4.9); POTASSIUM 4.2 mmol/L (3.5-5.1)
[2020-12-22 16:16] LABS: HEMATOCRIT 30.6 % (42.0-52.0); WBC 9.8 thou/uL (4.0-11.0)
[2020-12-22 16:20] LABS: HEMOGLOBIN 10.1 gm/dL (14.0-18.0); MCH 29.1 pg (26.0-34.0); MCHC 32.9 g/dL (28.0-37.0); MCV 88.4 fL (80.0-100.0); MPV 7.1 fl. (7.2-11.1); NUCLEATED RBCS 10 /100WBC; RBC 3.46 mil/uL (4.50-6.00); RDW-CV 21.7 % (10.5-14.5)
[2020-12-22 16:27] LABS: CALCIUM 8.6 mg/dL (8.5-10.1); PHOSPHORUS* 2.1 mg/dL (2.5-4.9); POTASSIUM 4.7 mmol/L (3.5-5.1)
[2020-12-22 16:57] LABS: BE -1.4 mmol/L (-2 to +3); PCO2 VENOUS 51.7 mmHg (41.0-51.0); PO2 VENOUS 102.3 mmHg (35.0-45.0)
[2020-12-22 17:06] LABS: ABSOLUTE LYMPHOCYTES 0.2 thou/uL (0.8-5.3); ABSOLUTE NEUTROPHILS 9.6 thou/uL (1.6-8.1)
[2020-12-22 17:07] LABS: LARGE PLATELETS OCCASIONAL; PLATELET ESTIMATE DECREASED
[2020-12-22 17:10] LABS: ANISOCYTOSIS 2+
[2020-12-22 17:11] LABS: POLYCHROMASIA 2+
[2020-12-22 17:28] LABS: PLATELET COUNT* 18 thou/uL (150-400)
[2020-12-22 20:07] LABS: HEMATOCRIT 31.2 % (42.0-52.0); HEMOGLOBIN 10.4 gm/dL (14.0-18.0); MCH 29.3 pg (26.0-34.0); MCHC 33.5 g/dL (28.0-37.0); MCV 87.7 fL (80.0-100.0); MPV 8.3 fl. (7.2-11.1); RBC 3.56 mil/uL (4.50-6.00); WBC 9.5 thou/uL (4.0-11.0)
[2020-12-22 20:19] LABS: CALCIUM 8.7 mg/dL (8.5-10.1); MAGNESIUM 2.1 mg/dL (1.8-2.4); PHOSPHORUS* 2.2 mg/dL (2.5-4.9); POTASSIUM 4.6 mmol/L (3.5-5.1)
[2020-12-23] VITALS (138 sets, daily range): BP systolic 59–223; BP diastolic 34–76
[2020-12-23 00:43] LABS: HEMOGLOBIN 10.9 gm/dL (14.0-18.0); RBC 3.72 mil/uL (4.50-6.00)
[2020-12-23 00:45] LABS: HEMATOCRIT 32.7 % (42.0-52.0); MCH 29.3 pg (26.0-34.0); MCHC 33.4 g/dL (28.0-37.0); MCV 87.8 fL (80.0-100.0); MPV 7.1 fl. (7.2-11.1); RDW-CV 21.2 % (10.5-14.5); WBC 8.5 thou/uL (4.0-11.0)
[2020-12-23 00:50] LABS: CALCIUM 9.1 mg/dL (8.5-10.1); CREATININE 0.9 mg/dL (0.6-1.3); MAGNESIUM 1.9 mg/dL (1.8-2.4); PHOSPHORUS* 1.7 mg/dL (2.5-4.9); POTASSIUM 4.4 mmol/L (3.5-5.1)
[2020-12-23 04:55] LABS: ABSOLUTE EOSINOPHILS 0.1 thou/uL (0.0-0.7); ABSOLUTE LYMPHOCYTES 0.4 thou/uL (0.8-5.3); ABSOLUTE MONOCYTES 0.1 thou/uL (0.0-1.2); ABSOLUTE NEUTROPHILS 6.7 thou/uL (1.6-8.1); BASOPHILS 0.4 %; EOSINOPHILS 1.4 %; HEMATOCRIT 34.2 % (42.0-52.0); HEMOGLOBIN 11.2 gm/dL (14.0-18.0); LYMPHOCYTES 5.2 %; MCH 29.1 pg (26.0-34.0); MCHC 32.7 g/dL (28.0-37.0); MCV 89.1 fL (80.0-100.0); MONOCYTES 1.8 %; NUCLEATED RBCS 19 /100WBC; POLYS 91.2 %; RBC 3.84 mil/uL (4.50-6.00); WBC 7.3 thou/uL (4.0-11.0)
[2020-12-23 05:41] LABS: CALCIUM 8.8 mg/dL (8.5-10.1); PLATELET COUNT* 12 thou/uL (150-400); POTASSIUM 4.1 mmol/L (3.5-5.1); TOTAL BILIRUBIN 2.9 mg/dL (<0.1-1.0); TOTAL PROTEIN 7.1 g/dL (6.4-8.2)
[2020-12-23 08:33] LABS: BE -11.1 mmol/L (-2 to +3); PCO2 47.8 mmHg (35.0-45.0)
[2020-12-23 08:38] LABS: PO2 48.8 mmHg (75.0-100.0); pH 7.169 (7.340-7.450)
[2020-12-23 12:21] LABS: TROPONIN-I LEVEL 1.06 ng/mL (<0.06)
[2020-12-23 22:33] LABS: PCO2 70.1 mmHg (35.0-45.0)
[2020-12-24] VITALS (74 sets, daily range): BP systolic 66–185; BP diastolic 33–97
[2020-12-24 03:29] LABS: ABSOLUTE LYMPHOCYTES 0.5 thou/uL (0.8-5.3); ABSOLUTE MONOCYTES 0.2 thou/uL (0.0-1.2); ABSOLUTE NEUTROPHILS 8.1 thou/uL (1.6-8.1); BASOPHILS 0.5 %; EOSINOPHILS 0.1 %; HEMATOCRIT 23.3 % (42.0-52.0); LYMPHOCYTES 5.3 %; MCH 30.8 pg (26.0-34.0); MCHC 33.7 g/dL (28.0-37.0); MCV 91.6 fL (80.0-100.0); MONOCYTES 2.1 %; MPV 11.9 fl. (7.2-11.1); NUCLEATED RBCS 5 /100WBC; RBC 2.54 mil/uL (4.50-6.00); RDW-CV 22.7 % (10.5-14.5); WBC 8.8 thou/uL (4.0-11.0)
[2020-12-24 03:53] LABS: CALCIUM 6.9 mg/dL (8.5-10.1); TOTAL BILIRUBIN 1.9 mg/dL (<0.1-1.0); TOTAL PROTEIN 4.9 g/dL (6.4-8.2)
[2020-12-24 03:57] LABS: CREATININE 2.5 mg/dL (0.6-1.3); HEMOGLOBIN 7.8 gm/dL (14.0-18.0)
[2020-12-24 03:58] LABS: PLATELET COUNT* 25 thou/uL (150-400); POTASSIUM 6.2 mmol/L (3.5-5.1)
[2020-12-24 05:01] LABS: BE -8.2 mmol/L (-2 to +3)
[2020-12-24 05:05] LABS: PCO2 56.6 mmHg (35.0-45.0); pH 7.166 (7.340-7.450)
[2020-12-24 05:06] LABS: PO2 47.9 mmHg (75.0-100.0)
[2020-12-24 09:56] LABS: MCH 30.6 pg (26.0-34.0); MCHC 33.1 g/dL (28.0-37.0); MCV 92.5 fL (80.0-100.0); MPV 9.3 fl. (7.2-11.1); RBC 2.59 mil/uL (4.50-6.00); RDW-CV 23.5 % (10.5-14.5); WBC 10.6 thou/uL (4.0-11.0)
[2020-12-24 10:03] LABS: CALCIUM 7.8 mg/dL (8.5-10.1); CREATININE 2.9 mg/dL (0.6-1.3)
[2020-12-24 10:09] LABS: POTASSIUM 6.6 mmol/L (3.5-5.1)
[2020-12-24 23:42] LABS: CALCIUM 8.3 mg/dL (8.5-10.1); CREATININE 3.2 mg/dL (0.6-1.3)
[2020-12-24 23:50] LABS: HEMATOCRIT 24.7 % (42.0-52.0); HEMOGLOBIN 7.4 gm/dL (14.0-18.0); MCH 28.4 pg (26.0-34.0); MCHC 29.9 g/dL (28.0-37.0); MCV 94.8 fL (80.0-100.0); MPV 8.8 fl. (7.2-11.1); RBC 2.61 mil/uL (4.50-6.00); RDW-CV 24.4 % (10.5-14.5); WBC 8.9 thou/uL (4.0-11.0)
[2020-12-24 23:56] LABS: POTASSIUM 7.3 mmol/L (3.5-5.1)
[2020-12-25] VITALS (46 sets, daily range): BP systolic 58–141; BP diastolic 39–76
[2020-12-25 00:19] LABS: pH 6.987 (7.340-7.450)
[2020-12-25 00:20] LABS: PCO2 58.7 mmHg (35.0-45.0); PO2 59.1 mmHg (75.0-100.0)
[2020-12-25 05:14] LABS: BE -13.3 mmol/L (-2 to +3)
[2020-12-25 05:22] LABS: PCO2 54.7 mmHg (35.0-45.0); PO2 57.6 mmHg (75.0-100.0); pH 7.081 (7.340-7.450)
[2020-12-25 08:22] LABS: MCH 27.8 pg (26.0-34.0); MCHC 29.9 g/dL (28.0-37.0); MCV 92.8 fL (80.0-100.0); MPV 10.8 fl. (7.2-11.1); RBC 2.48 mil/uL (4.50-6.00); RDW-CV 24.2 % (10.5-14.5)
[2020-12-25 08:58] LABS: ALBUMIN 1.8 g/dL (3.4-5.0); CALCIUM 6.9 mg/dL (8.5-10.1); MAGNESIUM 2.3 mg/dL (1.8-2.4); TOTAL BILIRUBIN 5.6 mg/dL (<0.1-1.0); TOTAL PROTEIN 4.4 g/dL (6.4-8.2)
[2020-12-25 09:04] LABS: HEMOGLOBIN 6.9 gm/dL (14.0-18.0); POTASSIUM 6.4 mmol/L (3.5-5.1)
== END 2020-12-25 12:54 | DRG 870 ==
LOC: M.ERS 01:30 → M.ICU 05:52 → M.TBA-ER 05:52 → M.ORTHSURG 05:52 → M.ICU 12-04 16:25
PROVIDERS: Emergency Medicine; Family Medicine; Internal Medicine; Internal Medicine Critical Care Medicine; Internal Medicine Hematology & Oncology; Internal Medicine Nephrology; Pediatrics; ADMIT Internal Medicine; ATTEND Internal Medicine
PROC: XW033E5 Introduction of Remdesivir Anti-infective into Peripheral Vein, Percutaneous Approach, New Technology Group 5 (ICD-10-PCS; principal; 2020-11-29)
PROC: XW13325 Transfusion of Convalescent Plasma (Nonautologous) into Peripheral Vein, Percutaneous Approach, New Technology Group 5 (ICD-10-PCS; principal; 2020-11-29)
PROC: 5A09357 Assistance with Respiratory Ventilation, Less than 24 Consecutive Hours, Continuous Positive Airway Pressure (ICD-10-PCS; principal; 2020-11-29)
PROC: 5A0935A Assistance with Respiratory Ventilation, Less than 24 Consecutive Hours, High Flow/Velocity Cannula (ICD-10-PCS; principal; 2020-11-29)
PROC: 02HV33Z Insertion of Infusion Device into Superior Vena Cava, Percutaneous Approach (ICD-10-PCS; 2020-11-30)
PROC: B548ZZA Ultrasonography of Superior Vena Cava, Guidance (ICD-10-PCS; 2020-11-30)
PROC: 5A0935A Assistance with Respiratory Ventilation, Less than 24 Consecutive Hours, High Flow/Velocity Cannula (ICD-10-PCS; 2020-11-30)
PROC: 5A09357 Assistance with Respiratory Ventilation, Less than 24 Consecutive Hours, Continuous Positive Airway Pressure (ICD-10-PCS; 2020-11-30)
PROC: 5A0935A Assistance with Respiratory Ventilation, Less than 24 Consecutive Hours, High Flow/Velocity Cannula (ICD-10-PCS; 2020-12-01)
PROC: 5A09457 Assistance with Respiratory Ventilation, 24-96 Consecutive Hours, Continuous Positive Airway Pressure (ICD-10-PCS; 2020-12-01)
PROC: 0BH17EZ Insertion of Endotracheal Airway into Trachea, Via Natural or Artificial Opening (ICD-10-PCS; 2020-12-04)
PROC: 5A1955Z Respiratory Ventilation, Greater than 96 Consecutive Hours (ICD-10-PCS; 2020-12-04)
PROC: 02HV33Z Insertion of Infusion Device into Superior Vena Cava, Percutaneous Approach (ICD-10-PCS; 2020-12-05)
PROC: 02HV33Z Insertion of Infusion Device into Superior Vena Cava, Percutaneous Approach (ICD-10-PCS; 2020-12-06)
PROC: 30233N1 Transfusion of Nonautologous Red Blood Cells into Peripheral Vein, Percutaneous Approach (ICD-10-PCS; 2020-12-11)
PROC: B548ZZA Ultrasonography of Superior Vena Cava, Guidance (ICD-10-PCS; 2020-12-11)
PROC: 02HV33Z Insertion of Infusion Device into Superior Vena Cava, Percutaneous Approach (ICD-10-PCS; 2020-12-11)
PROC: 5A1D70Z Performance of Urinary Filtration, Intermittent, Less than 6 Hours Per Day (ICD-10-PCS; 2020-12-12)
PROC: 5A1D90Z Performance of Urinary Filtration, Continuous, Greater than 18 hours Per Day (ICD-10-PCS; 2020-12-14)
PROC: 4A133J1 Monitoring of Arterial Pulse, Peripheral, Percutaneous Approach (ICD-10-PCS; 2020-12-16)
PROC: 03HY32Z Insertion of Monitoring Device into Upper Artery, Percutaneous Approach (ICD-10-PCS; 2020-12-16)
PROC: 4A133B1 Monitoring of Arterial Pressure, Peripheral, Percutaneous Approach (ICD-10-PCS; 2020-12-16)
PROC: 5A1D90Z Performance of Urinary Filtration, Continuous, Greater than 18 hours Per Day (ICD-10-PCS; 2020-12-18)
PROC: 5A1D90Z Performance of Urinary Filtration, Continuous, Greater than 18 hours Per Day (ICD-10-PCS; 2020-12-20)
PROC: 5A1D90Z Performance of Urinary Filtration, Continuous, Greater than 18 hours Per Day (ICD-10-PCS; 2020-12-21)
PROC: 5A1D90Z Performance of Urinary Filtration, Continuous, Greater than 18 hours Per Day (ICD-10-PCS; 2020-12-24)
DX: A41.89 Other specified sepsis (principal); U07.1 COVID-19; J12.82 Pneumonia due to coronavirus disease 2019; K85.90 Acute pancreatitis without necrosis or infection, unspecified; G92 Toxic encephalopathy; J80 Acute respiratory distress syndrome; R65.21 Severe sepsis with septic shock; N17.0 Acute kidney failure with tubular necrosis; J44.0 Chronic obstructive pulmonary disease with (acute) lower respiratory infection; J44.1 Chronic obstructive pulmonary disease with (acute) exacerbation; K56.7 Ileus, unspecified; N39.0 Urinary tract infection, site not specified; Z16.12 Extended spectrum beta lactamase (ESBL) resistance; G82.20 Paraplegia, unspecified; D62 Acute posthemorrhagic anemia; I82.621 Acute embolism and thrombosis of deep veins of right upper extremity; I82.611 Acute embolism and thrombosis of superficial veins of right upper extremity; F20.9 Schizophrenia, unspecified; G47.00 Insomnia, unspecified; E03.9 Hypothyroidism, unspecified; M81.0 Age-related osteoporosis without current pathological fracture; E11.65 Type 2 diabetes mellitus with hyperglycemia; I48.91 Unspecified atrial fibrillation; D64.9 Anemia, unspecified; J20.9 Acute bronchitis, unspecified; B96.20 Unspecified Escherichia coli [E. coli] as the cause of diseases classified elsewhere; F41.9 Anxiety disorder, unspecified; I10 Essential (primary) hypertension; E86.9 Volume depletion, unspecified; I95.9 Hypotension, unspecified; D69.6 Thrombocytopenia, unspecified; T50.995A Adverse effect of other drugs, medicaments and biological substances, initial encounter; G89.29 Other chronic pain; I48.0 Paroxysmal atrial fibrillation; Z79.82 Long term (current) use of aspirin; Z79.4 Long term (current) use of insulin; Z79.899 Other long term (current) drug therapy; Y92.89 Other specified places as the place of occurrence of the external cause